=== PATIENT | male | born 1985 | race Two or more races ===

== ENCOUNTER 2021-07-01 09:40 | Emergency (ER) | payer OTHER, SELFPAY ==
--- NOTE | ~2021-07-01 | XR_ITS ---
EXAMINATION: XR chest 1V CLINICAL INFORMATION: Chest pain COMPARISON: None TECHNIQUE: XR chest 1V Tubes and lines: None Lungs and pleura: Both lungs are clear. Heart and mediastinum: The mediastinum is within normal limits.. Bones/soft tissue: ORIF right clavicle XR/XR chest 1V IMPRESSION: No radiographic evidence of acute cardiopulmonary disease.
--- NOTE | 2021-07-01 09:44 | ECG_ITS ---
Test Reason : CHEST PAIN, HEADACHE, BODY ACHE Blood Pressure : / mmHG Vent. Rate : 077 BPM Atrial Rate : 077 BPM P-R Int : 120 ms QRS Dur : 090 ms QT Int : 356 ms P-R-T Axes : 063 -20 044 degrees QTc Int : 402 ms Normal sinus rhythm Normal ECG No previous ECGs available Referred By: Generic ED Physician Electronically Signed By:MOSES JAY MD
[2021-07-01 10:18] VITALS: BP 129/84; PULSE 81; RESP 18; TEMP 36.2; O2SAT 100; BMI 25.8
--- NOTE | 2021-07-01 14:07 | ED_ITS ---
HPI - Chest Pain General Chief Complaint: Upper Respiratory Symptoms Stated Complaint: chest pain, ekg changes, sent from [employer] Time Seen by Provider: 07/01/21 13:40 Source: patient Mode of arrival: ambulatory Limitations: no limitations History of Present Illness HPI narrative: This is a 36 years old patient referred by the Urgent Care with chief complaint of chest pain , chest pain ongoing for about 3 days, denies any shortness of breath he describes the pain as a dull worse with palpation and deep breath. He denies any risk factors for coronary artery disease Onset (ago): day(s) (3) Timing of current episode: daily Onset: during rest Pain location: substernal Pain radiation: none Severity: mild Quality: aching Exacerbating factors: nothing Context: recent illness Risk Factors Coronary artery disease risk factors: none Thoracic aortic dissection risk factors: none Related Data Allergies Allergy/AdvReac Type Severity Reaction Status Date / Time No Known Allergies Allergy Verified 07/01/21 10:17 Review of Systems Review of Systems: Yes all other systems are reviewed and are negative Constitutional: Constitutional: Reports no additional constitutional complaints ENT: Reports system reviewed and no additional complaints, except as documented Cardiovascular: Cardiovascular: Reports no additional cardiovascular complaints Respiratory: Respiratory: Reports no additional respiratory complaints Gastrointestinal: Gastrointestinal: Denies abdominal pain Musculoskeletal: Musculoskeletal: Reports no additional musculoskeletal complaints Neurologic: Reports system reviewed and no additional complaints, except as documented PMFSH Past Medical History PMFSH Narrative: Patient denies any medical problems including diabetes/hypertension hypercholesteremia. He is no smoke Medical History No known health problems Social History Social History Advance Directives: No Advance Directives Information Provided: No Physical Exam Vital Signs: Vital Signs: Last Vital Signs Temp 97.2 F 07/01/21 10:18 Pulse 81 07/01/21 10:18 Resp 18 07/01/21 10:18 BP 129/84 07/01/21 10:18 Pulse Ox 100 07/01/21 10:18 BMI result Body Mass Index 25.8 Const: General: cooperative Nutritional Appearance: well nourished Orientation/consciousness: patient oriented x3 Limitations: no limitations HENMT: Head: Yes normal to inspection General nose exam: Normal external nose present Face and sinus: Yes normal facial exam Mouth: Normal oral and palatal mucosa present Throat: Yes posterior oropharynx normal Neck: Neck: Yes normal visual inspection, Yes full ROM and Yes no lymphadenopathy Chest: Chest palpation & inspection: normal inspection of the chest Resp: Effort & Inspection: normal respiratory effort and able to speak in complete sentences Auscultation: clear to auscultation bilaterally Cardio: Jugular venous distension: no JVD Rate: regular rate GI: Inspection: Yes normal to inspection Palpation (GI): Soft to palpation, not firm, nontender and no guarding Percussion: Yes normal to percussion Skin: General skin exam: no rashes or lesions noted, elasticity normal and turgor normal Lesions: no lesions Rashes: no rashes Wounds: no wounds Hair: normal Neuro: General: patient oriented x3 Course Reevaluation(s) Reevaluation #1: He Is feeling better, D-dimer is negative, high sensitive troponin is normal chest x-ray based within normal limits and overall is low risk patient okay to discharge home Reevaluation #2: chest pain free at this time MDM - Chest Pain MDM Narrative Medical decision making narrative: Overall the patient has no risk factors for early coronary artery disease, no smoker, no hypertension, no hypercholesteremia. EKG shows the no current of injury. I performed a bedside ultrasound he has normal wall motion, no pericardial effusion. We will obtain D-dimer and troponin I sensitive Lab Data Result diagrams: 07/01/21 14:14 07/01/21 14:14 Labs: Lab Results 07/01/21 07/01/21 07/01/21 Range/Units 14:13 14:13 14:14 WBC 9.4 (4.8-10.8) X10*3/uL RBC 5.22 (4.60-5.80) X10*6/uL Hgb 16.6 (14.0-18.0) g/dl Hct 47.5 (42.0-52.0) % MCV 91.0 (80.0-98.0) fL MCH 31.8 (27.0-33.0) pg MCHC 34.9 (31.0-36.0) g/dl RDW 11.4 (11.0-16.0) % Plt Count 278 (160-400) X10*3/uL MPV 9.6 (9.4-12.4) fL Immature Gran % (Auto) 0.2 (0.0-0.4) % Neut % (Auto) 66.8 (45-73) % Lymph % (Auto) 25.2 (20-40) % [place] % (Auto) 6.8 (2-11) % Eos % (Auto) 0.7 (0-4) % Baso % (Auto) 0.3 (0-2) % Lymph # (Auto) 2.4 (1.2-4.9) X10*3/uL [place] # (Auto) 0.6 (0.1-1.2) X10*3/uL Eos # (Auto) 0.1 (0.0-0.4) X10*3/uL Baso # (Auto) 0.0 (0.0-0.2) X10*3/uL Abs Immat Gran (auto) 0.02 (0.00-0.03) X10*3/uL Absolute Neuts (auto) 6.3 (2.0-8.3) x10*3/uL Absolute Nucleated RBC 0.000 (0.0-0.012) X10*3/uL Nucleated RBC % (auto) 0.0 (0.0-0.2) /100WBC D-Dimer High Sensitivty < 150 NG/ML Sodium (135-145) mmol/L Potassium (3.3-5.1) mmol/L Chloride (96-108) mmol/L Carbon Dioxide (22-29) mmol/L Anion Gap (12-20) BUN (9-16) mg/dL Creatinine (0.5-1.4) mg/dL Estim Creat Clear Calc Estimated GFR Random Glucose (60-115) mg/dL Calcium (8.4-10.2) mg/dL Troponin I High Sens < 3.5 (<3.5-35.0) ng/L 07/01/21 Range/Units 14:14 WBC (4.8-10.8) X10*3/uL RBC (4.60-5.80) X10*6/uL Hgb (14.0-18.0) g/dl Hct (42.0-52.0) % MCV (80.0-98.0) fL MCH (27.0-33.0) pg MCHC (31.0-36.0) g/dl RDW (11.0-16.0) % Plt Count (160-400) X10*3/uL MPV (9.4-12.4) fL Immature Gran % (Auto) (0.0-0.4) % Neut % (Auto) (45-73) % Lymph % (Auto) (20-40) % [place] % (Auto) (2-11) % Eos % (Auto) (0-4) % Baso % (Auto) (0-2) % Lymph # (Auto) (1.2-4.9) X10*3/uL [place] # (Auto) (0.1-1.2) X10*3/uL Eos # (Auto) (0.0-0.4) X10*3/uL Baso # (Auto) (0.0-0.2) X10*3/uL Abs Immat Gran (auto) (0.00-0.03) X10*3/uL Absolute Neuts (auto) (2.0-8.3) x10*3/uL Absolute Nucleated RBC (0.0-0.012) X10*3/uL Nucleated RBC % (auto) (0.0-0.2) /100WBC D-Dimer High Sensitivty NG/ML Sodium 139 (135-145) mmol/L Potassium 4.0 (3.3-5.1) mmol/L Chloride 103 (96-108) mmol/L Carbon Dioxide 30 H (22-29) mmol/L Anion Gap 10 L (12-20) BUN 8 L (9-16) mg/dL Creatinine 0.77 (0.5-1.4) mg/dL Estim Creat Clear Calc 123.9 Estimated GFR > 60 Random Glucose 91 (60-115) mg/dL Calcium 9.3 (8.4-10.2) mg/dL Troponin I High Sens (<3.5-35.0) ng/L Imaging Data Chest x-ray: Radiologist's impression: EXAMINATION: XR chest 1V CLINICAL INFORMATION: Chest pain COMPARISON: None? TECHNIQUE: XR chest 1V Tubes and lines: None Lungs and pleura: Both lungs are clear. Heart and mediastinum: The mediastinum is within normal limits.. Bones/soft tissue: ORIF right clavicle XR/XR chest 1V IMPRESSION: No radiographic evidence of acute cardiopulmonary disease. Dictated By: MURPHY LINDER MD Signed By: <Electronically signed by MURPHY LINDER MD in OV> 07/01/21 1027 DD/ 0950 TD/TT:? [place] Counselor: ECG Data ECG #1: ECG interpretation date: 07/01/21 ECG interpretation time: 14:12 Prior ECG tracings: available for review Pacemaker model: Normal sinus rhythm/[address]-T changes Scores Heart Score History: -0- slightly suspicious ECG: -0- normal Age: -0- < or = 45 Risk factory: -0- no risk factors known Troponin: -0- < or = normal limit Score: 0 Risk: 1.7% Discharge Plan Discharge Clinical Impression: Chest pain Patient Disposition: Home, Self-Care Instructions: Chest Pain (ED) Additional Instructions: Follow-up with your primary care physician or if youdo not have one you can call adult primary care or Family medicine return if worse,any concern
[2021-07-01 14:19] LABS: MANUAL DIFF FLAG NO
[2021-07-01 14:20] LABS: Basophils Percent Auto 0.3 % (0-2); Eosinophils Absolute Auto 0.1 X10*3/uL (0.0-0.4); Eosinophils Percent Auto 0.7 % (0-4); Hematocrit 47.5 % (42.0-52.0); Hemoglobin 16.6 g/dl (14.0-18.0); Imm Gran Abs Auto 0.02 X10*3/uL (0.00-0.03); Imm Gran Pct Auto 0.2 % (0.0-0.4); Lymphocytes Absolute Auto 2.4 X10*3/uL (1.2-4.9); Lymphocytes Percent Auto 25.2 % (20-40); Mean Corpuscular HGB Conc 34.9 g/dl (31.0-36.0); Mean Corpuscular Hemoglobin 31.8 pg (27.0-33.0); Mean Platelet Volume 9.6 fL (9.4-12.4); Monocytes Absolute Auto 0.6 X10*3/uL (0.1-1.2); Monocytes Percent Auto 6.8 % (2-11); Neutrophils Absolute Auto 6.3 x10*3/uL (2.0-8.3); Neutrophils Percent Auto 66.8 % (45-73); Platelet Count 278 X10*3/uL (160-400); Red Blood Count 5.22 X10*6/uL (4.60-5.80); Red Cell Distribution Width 11.4 % (11.0-16.0); White Blood Count 9.4 X10*3/uL (4.8-10.8)
--- NOTE | 2021-07-01 14:21 | PC.NURSE ---
Pt received: Pt AOx4 and c/o slight chest discomfort. Heart sounds normal and lungs clear. Pt abd soft and non-tender. Pt ambulatory and independant
[2021-07-01 14:39] LABS: Anion Gap 10 (12-20); Blood Urea Nitrogen 8 mg/dL (9-16); Calcium 9.3 mg/dL (8.4-10.2); Carbon Dioxide 30 mmol/L (22-29); Chloride 103 mmol/L (96-108); Creatinine Clr Calc Pharmacy 123.9; Estimated Glomerular Filt Rate > 60; Glucose Random 91 mg/dL (60-115); Sodium 139 mmol/L (135-145)
[2021-07-01 14:41] LABS: D Dimer High Sensitivity < 150 NG/ML
[2021-07-01 14:46] LABS: Troponin-I High Sensitivity < 3.5 ng/L (<3.5-35.0)
== END 2021-07-01 16:30 | disposition home or self-care (01) ==
PROVIDERS: Emergency Provider Emergency Medicine
DX: R07.9 Chest pain, unspecified (principal)
CPT/HCPCS: 36415; 71045; 80048; 84484; 85025; 85379; 93005; 99283

== ENCOUNTER 2021-09-03 07:19 | Emergency (ER) | payer OTHER, SELFPAY ==
--- NOTE | ~2021-09-03 | XR_ITS ---
EXAMINATION: XR CHEST CLINICAL INFORMATION: Chest pain, cough. COMPARISON: 07/01/2021 TECHNIQUE: Frontal view of the chest was obtained. FINDINGS: ORIF right clavicular fracture. The cardiomediastinal silhouette is within normal limits and stable. The lungs are minimally hypoexpanded but clear. No consolidation, effusion, or pneumothorax. No vascular congestion or pulmonary edema. XR/XR chest 1V IMPRESSION: No acute cardiopulmonary findings. Stable chest x-ray compared 07/01/2021.
[2021-09-03 07:31] VITALS: BP 127/83; PULSE 80; RESP 16; TEMP 36.4; O2SAT 98; BMI 26.2
--- NOTE | 2021-09-03 08:48 | ECG_ITS ---
Test Reason : CHEST PAIN Blood Pressure : / mmHG Vent. Rate : 069 BPM Atrial Rate : 069 BPM P-R Int : 112 ms QRS Dur : 090 ms QT Int : 372 ms P-R-T Axes : 036 -15 033 degrees QTc Int : 398 ms Normal sinus rhythm Normal ECG When compared with ECG of 01-JUL-2021 11:18, No significant change was found Referred By: Aris Montelongo Electronically Signed By:MOSES JAY MD
--- NOTE | 2021-09-03 08:50 | ED_ITS ---
HPI - General Adult General Chief complaint: Headache Stated complaint: dizziness/body aches Time Seen by Provider: 09/03/21 08:24 Source: patient Mode of arrival: ambulatory Limitations: no limitations History of Present Illness HPI narrative: 36-year-old male presents to ED for multiple complaints for the past 2 weeks. Patient states having body aches, headache, coughing, fatigue, chest pain on inspiration, chills, diarrhea, abdominal pain, and dizziness described as fatigue. Patient denies any slurred speech, facial droop, paralysis of extremity, loss of vision, or passing out. Patient denies any dysuria, hematuria, flank pain, or any genital urinary symptoms. Patient not vaccinated against COVID. Related Data Allergies Allergy/AdvReac Type Severity Reaction Status Date / Time No Known Allergies Allergy Verified 07/01/21 10:17 Review of Systems Review of Systems: Headache, body aches, coughing, abdominal pain, diarrhea, dizziness. Yes all other systems are reviewed and are negative PMFSH Past Medical History Medical History No known health problems Social History Social History Patient Tobacco Use Status: Never used Tobacco Use of substances other than those prescribed or required for medical reasons: No Advance Directives: No Advance Directives Information Provided: No Physical Exam ED Vital Signs: Vital Signs - 24 hr 09/03/21 07:31 09/03/21 09:34 09/03/21 10:48 Temperature 97.6 F Pulse Rate 80 70 Respiratory Rate 16 18 18 Blood Pressure 127/83 122/84 126/86 Pulse Oximetry 98 99 BMI result Body Mass Index 26.2 Const General: cooperative, healthy appearing, comfortable, no acute distress, well developed, alert, awake and Physically active Orientation/consciousness: patient oriented x3 HENMT Head: Yes normal to inspection, Yes No palpable skull fracture present, Yes normocephalic, Yes atraumatic and No abrasion Ears: hearing grossly normal bilaterally, external ears normal, TM's normal bilaterally, EAC's normal, mastoids normal and no periauricular adenopathy General nose exam: Normal external nose present and Normal nares present Face and sinus: Yes normal facial exam, Yes sinuses nontender and Yes face symmetric Throat: Yes posterior oropharynx normal, Yes tonsils normal and Yes uvula midl ine Eyes Other: Negative nystagmus General: appearance normal, both eyes and all related structures Neck Neck: Yes normal visual inspection, Yes full ROM, Yes no lymphadenopathy, Yes no meningeal signs, Yes trachea midline, Yes supple, No anterior neck swelling and No tender Chest Chest palpation & inspection: normal inspection of the chest and normal palpation of entire chest wall Resp Effort & Inspection: normal respiratory effort and able to speak in complete sentences Auscultation: clear to auscultation bilaterally Cardio Jugular venous distension: no JVD Heart sounds: S1 normal heart sound present and S2 normal heart sound present GI Inspection: Yes normal to inspection and No abdominal wall ecchymosis Palpation (GI): Soft to palpation, not firm, nontender, no guarding and not rigid General: No CVA tenderness and Yes no CVA tenderness Back/Spine/Pelvis Back: no CVA tenderness, No CVA tenderness and No back tenderness Skin General skin exam: no rashes or lesions noted and elasticity normal Neuro Other: Negative facial droop. [id number] and rapid hand movement intact. Negative Romberg. Negative pronator drift. Negative slurred speech. All extremities equal strength 5+. [id number] rapid head movement intact. NIH score 0 General: patient oriented x3, gait normal, no meningeal signs and CN's II-XI int act bilaterally Cranial nerves: Yes CN's II-XII intact bilaterally Cognition (Neuro): normal cognition Gait exam (Neuro): Normal gait present Motor exam (neuro): 5/5 motor strength present throughout Extrem General: Yes normal to inspection and Yes full ROM Psych Appearance: grossly normal, well kempt and not disheveled Course Course Course Narrative: Patient will have medical evaluation probably viral-like syndrome will test for COVID due to chest pain inspiration will do troponin EKG and dimer. Chest x-ray ordered to check for pneumonia Reevaluation(s) Reevaluation #1: Negative for any neuro deficits. Not suspecting stroke, brain bleed, or mass. No Head CT scan indicated. Patient complaining of chest pain and on inspiration for 2 weeks has a negative D-dimer. COVID test came back negative. Chest chest x-ray normal. EKG negative STEMI. Labs are normal. Symptoms due to viral syndrome patient will be discharged. No need for any abdominal imaging. Patient does not have any abdominal tenderness on palpation. Patient did not have any urinary symptoms. No need for UA. Time: 10:36 Medical Decision Making MDM Narrative Medical decision making narrative: Viral syndrome Lab Data Result diagrams: 09/03/21 09:22 09/03/21 09:22 Labs: Lab Results 09/03/21 09/03/21 09/03/21 Range/Units 09:22 09:22 09:22 WBC 7.9 (4.8-10.8) X10*3/uL RBC 4.91 (4.60-5.80) X10*6/uL Hgb 15.5 (14.0-18.0) g/dl Hct 45.0 (42.0-52.0) % MCV 91.6 (80.0-98.0) fL MCH 31.6 (27.0-33.0) pg MCHC 34.4 (31.0-36.0) g/dl RDW 11.5 (11.0-16.0) % Plt Count 246 (160-400) X10*3/uL MPV 9.7 (9.4-12.4) fL Immature Gran % (Auto) 0.3 (0.0-0.4) % Neut % (Auto) 68.9 (45-73) % Lymph % (Auto) 23.4 (20-40) % [place] % (Auto) 6.6 (2-11) % Eos % (Auto) 0.4 (0-4) % Baso % (Auto) 0.4 (0-2) % Lymph # (Auto) 1.9 (1.2-4.9) X10*3/uL [place] # (Auto) 0.5 (0.1-1.2) X10*3/uL Eos # (Auto) 0.0 (0.0-0.4) X10*3/uL Baso # (Auto) 0.0 (0.0-0.2) X10*3/uL Abs Immat Gran (auto) 0.02 (0.00-0.03) X10*3/uL Absolute Neuts (auto) 5.4 (2.0-8.3) x10*3/uL Absolute Nucleated RBC 0.000 (0.0-0.012) X10*3/uL Nucleated RBC % (auto) 0.0 (0.0-0.2) /100WBC PT 12.1 (9.9-13.0) SEC INR 1.1 (0.9-1.1) APTT 30.5 (24.1-38.0) SEC D-Dimer High Sensitivty < 150 NG/ML Sodium 139 (135-145) mmol/L Potassium 4.4 (3.3-5.1) mmol/L Chloride 105 (96-108) mmol/L Carbon Dioxide 30 H (22-29) mmol/L Anion Gap 8 L (12-20) BUN 9 (9-16) mg/dL Creatinine 0.76 (0.5-1.4) mg/dL Estim Creat Clear Calc 125.6 Estimated GFR > 60 Random Glucose 86 (60-115) mg/dL Calcium 9.0 (8.4-10.2) mg/dL Total Bilirubin 0.5 (0.0-1.0) mg/dL AST 13 (5-37) U/L ALT 12 (0-40) U/L Alkaline Phosphatase 63 (39-117) U/L Troponin I High Sens (<3.5-35.0) ng/L Total Protein 6.6 (6.5-8.0) g/dL Albumin 4.0 (3.5-5.0) g/dL Lipase (8-78) U/L COVID-19 ([facility]) (Negative) COVID-19 Clin Com 09/03/21 09/03/21 09/03/21 Range/Units 09:22 09:22 09:23 WBC (4.8-10.8) X10*3/uL RBC (4.60-5.80) X10*6/uL Hgb (14.0-18.0) g/dl Hct (42.0-52.0) % MCV (80.0-98.0) fL MCH (27.0-33.0) pg MCHC (31.0-36.0) g/dl RDW (11.0-16.0) % Plt Count (160-400) X10*3/uL MPV (9.4-12.4) fL Immature Gran % (Auto) (0.0-0.4) % Neut % (Auto) (45-73) % Lymph % (Auto) (20-40) % [place] % (Auto) (2-11) % Eos % (Auto) (0-4) % Baso % (Auto) (0-2) % Lymph # (Auto) (1.2-4.9) X10*3/uL [place] # (Auto) (0.1-1.2) X10*3/uL Eos # (Auto) (0.0-0.4) X10*3/uL Baso # (Auto) (0.0-0.2) X10*3/uL Abs Immat Gran (auto) (0.00-0.03) X10*3/uL Absolute Neuts (auto) (2.0-8.3) x10*3/uL Absolute Nucleated RBC (0.0-0.012) X10*3/uL Nucleated RBC % (auto) (0.0-0.2) /100WBC PT (9.9-13.0) SEC INR (0.9-1.1) APTT (24.1-38.0) SEC D-Dimer High Sensitivty NG/ML Sodium (135-145) mmol/L Potassium (3.3-5.1) mmol/L Chloride (96-108) mmol/L Carbon Dioxide (22-29) mmol/L Anion Gap (12-20) BUN (9-16) mg/dL Creatinine (0.5-1.4) mg/dL Estim Creat Clear Calc Estimated GFR Random Glucose (60-115) mg/dL Calcium (8.4-10.2) mg/dL Total Bilirubin (0.0-1.0) mg/dL AST (5-37) U/L ALT (0-40) U/L Alkaline Phosphatase (39-117) U/L Troponin I High Sens < 3.5 (<3.5-35.0) ng/L Total Protein (6.5-8.0) g/dL Albumin (3.5-5.0) g/dL Lipase 15 (8-78) U/L COVID-19 ([facility]) Negative (Negative) COVID-19 Clin Com See Note ECG Data Interpretation: Normal sinus rhythm. Ventricular rate 69. Pr interval 112. QRS 90. QTC 398. Negative STEMI Discharge Plan Discharge Clinical Impression: Acute viral syndrome Patient Disposition: Home, Self-Care Instructions: Viral Syndrome (ED) Additional Instructions: Your EKG and blood work came back normal and negative for signs of heart attack or risk of pulmonary embolus. Chest x-ray came back negative for pneumonia. Electrolytes are normal. Symptoms most likely due to viral syndrome. Please follow-up with your primary care provider. Return to the ED immediately for any worsening symptoms. Return to the ED for any slurred speech, facial droop, paralysis of extremities, shortness of breath, coughing up blood, calf pain, leg swelling, intractable fever, chills, severe abdominal pain hematuria, dysuria, intractable headache, blood in stool or any other concerning symptoms. Stand Alone Forms: Work/School Release Interventions: ED Discharge Assessment Last Done: 09/03/21 10:49 Discharge Date/Time: 09/03/21 10:51 Print Language: Palestinian
[2021-09-03 09:29] LABS: MANUAL DIFF FLAG NO
[2021-09-03 09:34] VITALS: BP 122/84; PULSE 70; RESP 18; O2SAT 99
[2021-09-03 09:35] LABS: Basophils Percent Auto 0.4 % (0-2); Eosinophils Percent Auto 0.4 % (0-4); Hemoglobin 15.5 g/dl (14.0-18.0); Imm Gran Abs Auto 0.02 X10*3/uL (0.00-0.03); Imm Gran Pct Auto 0.3 % (0.0-0.4); Lymphocytes Absolute Auto 1.9 X10*3/uL (1.2-4.9); Lymphocytes Percent Auto 23.4 % (20-40); Mean Corpuscular HGB Conc 34.4 g/dl (31.0-36.0); Mean Corpuscular Hemoglobin 31.6 pg (27.0-33.0); Mean Corpuscular Volume 91.6 fL (80.0-98.0); Mean Platelet Volume 9.7 fL (9.4-12.4); Monocytes Absolute Auto 0.5 X10*3/uL (0.1-1.2); Monocytes Percent Auto 6.6 % (2-11); Neutrophils Absolute Auto 5.4 x10*3/uL (2.0-8.3); Neutrophils Percent Auto 68.9 % (45-73); Platelet Count 246 X10*3/uL (160-400); Red Blood Count 4.91 X10*6/uL (4.60-5.80); Red Cell Distribution Width 11.5 % (11.0-16.0); White Blood Count 7.9 X10*3/uL (4.8-10.8)
--- NOTE | 2021-09-03 09:40 | PC.NURSE ---
pt alert and oriented, skin pwd, respirations even and unlabored, pt reports for a about two weeks having a headache/dizziness/body aches/chest pain, states things are spinning in circles, vs stable
[2021-09-03 09:44] LABS: INTERNATIONAL NORM RATIO 1.1 (0.9-1.1); Prothrombin Time 12.1 SEC (9.9-13.0)
[2021-09-03 09:46] LABS: Partial Thromboplastin Time 30.5 SEC (24.1-38.0)
[2021-09-03 09:47] LABS: Lipase 15 U/L (8-78)
[2021-09-03 09:49] LABS: Alanine Aminotransferase 12 U/L (0-40); Alkaline Phosphatase 63 U/L (39-117); Anion Gap 8 (12-20); Aspartate Amino Transferase 13 U/L (5-37); Bilirubin Total 0.5 mg/dL (0.0-1.0); Blood Urea Nitrogen 9 mg/dL (9-16); Carbon Dioxide 30 mmol/L (22-29); Chloride 105 mmol/L (96-108); Creatinine Clr Calc Pharmacy 125.6; Estimated Glomerular Filt Rate > 60; Glucose Random 86 mg/dL (60-115); Potassium 4.4 mmol/L (3.3-5.1); Sodium 139 mmol/L (135-145); Total Protein 6.6 g/dL (6.5-8.0)
[2021-09-03 09:50] LABS: COVID-19 Test Negative (Negative)
[2021-09-03 09:51] LABS: Troponin-I High Sensitivity < 3.5 ng/L (<3.5-35.0)
[2021-09-03 10:23] LABS: D Dimer High Sensitivity < 150 NG/ML
[2021-09-03 10:48] VITALS: BP 126/86; RESP 18
== END 2021-09-03 10:51 | disposition home or self-care (01) ==
PROVIDERS: Physician Assistant; Emergency Provider Emergency Medicine
DX: B34.9 Viral infection, unspecified (principal); Z20.822 Contact with and (suspected) exposure to COVID-19; R51.9 Headache, unspecified
CPT/HCPCS: 36415; 71045; 80053; 83690; 84484; 85025; 85379; 85610; 85730; 87635; 93005; 99283; 99284

== ENCOUNTER 2022-08-23 18:42 | Emergency (ER) | payer OTHER, SELFPAY ==
[2022-08-23 18:55] VITALS: BP 134/87; PULSE 91; RESP 16; TEMP 36.4; O2SAT 96; BMI 29.0
--- NOTE | 2022-08-23 18:59 | ED_ITS ---
HPI - General Adult General Chief complaint: Ear Problems Stated complaint: ear infection? Time Seen by Provider: 08/23/22 19:02 Source: patient Mode of arrival: ambulatory Limitations: no limitations History of Present Illness HPI narrative: Patient is a 37 year old assigned male at with no reported medical history presenting to the emergency department today with right sided ear pain. Patient states that he has been having right sided ear pain and dizziness for 4 weeks. Patient states he was treated by [facility] with augmentin and it got better for a little bit but now it is back. Patient states that he has an appointment with ENT at the end of September. Patient denies any dizziness, lightheadedness, abdominal pain, nausea, vomiting, fever, chills, blurry vision, double vision, loss of vision, chest pain, difficulty breathing, shortness of breath, back pain, night sweats, pain with urination, increased urinary frequency, increased urinary urgency, blood in his urine or stool, syncope or a near syncopal episode, recent trauma or falls, bowel incontinence, bladder incontinence, bowel retention, bladder retention, or any other complaints at this time. Onset (ago): week(s) (4) Location: right (ear) Severity: mild Severity scale (1-10): 3 Relieving factors: none Exacerbating factors: none Associated symptoms: denies other symptoms Treatments prior to arrival: none Related Data Previous Rx's Medication Instructions Recorded doxycycline hyclate 100 mg tablet 100 mg PO BID 7 days #14 tabs 08/23/22 Allergies Allergy/AdvReac Type Severity Reaction Status Date / Time No Known Allergies Allergy Verified 07/01/21 10:17 Review of Systems Constitutional: Constitutional: Reports no additional constitutional complaints, Denies chills, Denies fever(s) and Denies night sweats Eyes: Eyes: Reports no additional eye complaints, Denies blurry vision, Denies change in vision, Denies diplopia, Denies eye discharge, Denies loss of vision and Denies eye pain ENT: Reports dizziness Comments: right ear pain Cardiovascular: Cardiovascular: Reports no additional cardiovascular complaints, Denies chest pain, Denies lightheadedness, Denies Loss of Consciousness and Denies dyspnea Respiratory: Respiratory: Reports no additional respiratory complaints and Denies dyspnea Gastrointestinal: Gastrointestinal: Reports no additional gastrointestinal complaints, Denies abdominal pain, Denies melena, Denies hematochezia, Denies change in bowel habits and Denies change in stool character Genitourinary: Genitourinary: Reports no additional male genitourinary complaints, Denies hematuria, Denies oliguria, Denies difficulty urinating, Denies dysuria, Denies urinary frequency, Denies urinary hesitancy, Denies urinary incontinence and Denies urinary urgency Musculoskeletal: Musculoskeletal: Reports no additional musculoskeletal complaints, Denies numbness and Denies tingling Neurologic: Reports dizziness, Denies loss of vision, Denies numbness and Denies tingling Psychiatric: Psychiatric: Reports no additional psychiatric complaints Endocrine: Endocrine: Reports no additional endocrine complaints Hematologic/Lymphatic: Hematologic/Lymphatic: Reports no additional hematologic/lymphatic complaints Allergic/Immunologic: Allergic/Immunologic: Reports no additional allergic/immunologic complaints PMFSH Past Medical History Attestation statement: The following information was validated with the patient. Source: old records reviewed and nursing notes reviewed Medical History No known health problems Social History Social History Patient Tobacco Use Status: Never used Tobacco Advance Directives: No Advance Directives Information Provided: No Physical Exam ED Vital Signs: Vital Signs - 24 hr 08/23/22 18:55 Temperature 97.5 F Pulse Rate 91 Respiratory Rate 16 Blood Pressure 134/87 Pulse Oximetry 96 Oxygen Delivery Method Room Air BMI result Body Mass Index 29.0 Const General: cooperative, no acute distress, alert and awake Nutritional Appearance: well nourished Orientation/consciousness: patient oriented x3 Limitations: no limitations [facility] Head: Yes normal to inspection and Yes atraumatic Ears: hearing grossly normal bilaterally, external ears normal and TM abnormal erythematous on the right General nose exam: Normal external nose present, no nasal discharge noted and no epistaxis Face and sinus: Yes normal facial exam, No abrasion, No laceration and Yes sinus tenderness Mouth: Normal oral and palatal mucosa present, no drooling and no muffled voice Eyes General: appearance normal, both eyes and all related structures Periorbital: periorbital findings normal Eyelids: Yes eyelids normal Conjunctivae: conjunctivae normal Pupils: Equal, round and reactive pupils present EOM: EOMs intact bilaterally Neck Neck: Yes normal visual inspection, Yes full ROM and Yes no lymphadenopathy Chest Chest palpation & inspection: normal inspection of the chest Resp Effort & Inspection: normal respiratory effort and able to speak in complete sentences Auscultation: clear to auscultation bilaterally Cardio Rate: regular rate Rhythm: regular rhythm GI Inspection: Yes normal to inspection Palpation (GI): Soft to palpation, not firm, nontender, no guarding and not rigid Neuro General: patient oriented x3 and moves all extremities Cranial nerves: Yes Equal, round and reactive pupils present Cognition (Neuro): normal cognition Motor exam (neuro): 5/5 motor strength present throughout Sensory Exam: Normal double simultaneous stimulation for sensation Coordination: [id number] test normal Extrem General: Yes normal to inspection, Yes full ROM and Yes capillary refill normal Psych Appearance: grossly normal Mental Status: mental status grossly normal Affect: normal affect Attitude: cooperative Thought process: Normal thought process present Thought content: Normal thought content present Insight: Good insight present (Psych) Medical Decision Making Medical Decision Making MDM Narrative: Patient is a 37 year old assigned male at with no reported medical history presenting to the emergency department today with right ear pain and dizziness. Patient's physical exam showed sinus tenderness and right TM erythema. I explained my physical exam findings to the patient. I answered all questions asked by the patient. I stressed the importance of the patient taking his medication as prescribed. I stressed the importance of the patient following up with his primary care provider and his ENT. I stressed the importance of the patient returning to the emergency department immediately if his symptoms were to worsen or if he were to develop any dizziness, shortness of breath, difficulty breathing, chest pain, blurry vision, loss of vision, nausea, vomiting, abdominal pain, fever, chills, back pain, or any other complaints. Patient verbalized agreement and understanding with this treatment plan and discharge. Differential Diagnosis Differential Diagnoses: The differential diagnosis associated with the presentation includes otitis media, sinusitis Discharge Plan Discharge Clinical Impression: Sinusitis, Otitis media Patient Disposition: Home, Self-Care Instructions: Sinusitis (ED), Ear Infection (ED) Additional Instructions: Follow up with your primary care provider and the ENT. Return to the emergency department immediately if your symptoms worsen or if you develop any dizziness, shortness of breath, difficulty breathing, chest pain, blurry vision, loss of vision, nausea, vomiting, abdominal pain, fever, chills, back pain, or any other complaints. Prescriptions: New doxycycline hyclate 100 mg tablet 100 mg PO BID 7 Days Qty: 14 0RF Referrals: [facility] [place] Family Medicine [Provider Group] (Call to establish and follow up with a primary care provider. If you already have a primary care provider, please follow up with them.) [facility] [place] Primary Care, Angel [Provider Group] (Call to establish and follow up with a primary care provider. If you already have a primary care provider, please follow up with them.) [facility] [place] Primary Care,Sae [Provider Group] (Call to establish and follow up with a primary care provider. If you already have a primary care provider, please follow up with them.) Interventions: ED Discharge Assessment Last Done: 08/23/22 19:05 Discharge Date/Time: 08/23/22 19:06 Print Language: Finnish
--- NOTE | 2022-08-23 19:05 | PC.NURSE ---
Pt was seen by PA in triage office and D/C'd immediately following the triage process.
== END 2022-08-23 19:06 | disposition home or self-care (01) ==
PROVIDERS: Emergency Provider Emergency Medicine Emergency Medical Services
DX: J32.9 Chronic sinusitis, unspecified (principal); H66.93 Otitis media, unspecified, bilateral
CPT/HCPCS: 99282; 99283

== ENCOUNTER → 2022-11-11 08:00 | Outpatient (BNVA) | payer SELFPAY | PROVIDERS: Visit Provider Physician Assistant Medical | DX: Z02.79 Encounter for issue of other medical certificate (principal) ==

== ENCOUNTER 2023-10-23 09:34 | Outpatient (REF) | payer SELFPAY ==
[2023-10-23 11:33] LABS: MANUAL DIFF FLAG NO
[2023-10-23 11:40] LABS: Basophils Percent Auto 0.3 % (0-2); Eosinophils Percent Auto 0.5 % (0-4); Hematocrit 47.3 % (42.0-52.0); Hemoglobin 16.5 g/dl (14.0-18.0); Imm Gran Abs Auto 0.02 X10*3/uL (0.00-0.03); Imm Gran Pct Auto 0.3 % (0.0-0.4); Lymphocytes Absolute Auto 2.1 X10*3/uL (1.2-4.9); Lymphocytes Percent Auto 26.6 % (20-40); Mean Corpuscular HGB Conc 34.9 g/dl (31.0-36.0); Mean Corpuscular Hemoglobin 31.5 pg (27.0-33.0); Mean Corpuscular Volume 90.3 fL (80.0-98.0); Monocytes Absolute Auto 0.8 X10*3/uL (0.1-1.2); Monocytes Percent Auto 10.5 % (2-11); Neutrophils Absolute Auto 4.8 x10*3/uL (2.0-8.3); Neutrophils Percent Auto 61.8 % (45-73); Platelet Count 271 X10*3/uL (160-400); Red Blood Count 5.24 X10*6/uL (4.60-5.80); Red Cell Distribution Width 11.6 % (11.0-16.0); White Blood Count 7.8 X10*3/uL (4.8-10.8)
[2023-10-23 12:06] LABS: Anion Gap 10 (12-20); Blood Urea Nitrogen 11 mg/dL (9-16); Calcium 9.2 mg/dL (8.4-10.2); Carbon Dioxide 29 mmol/L (22-29); Chloride 105 mmol/L (96-108); Estimated Glomerular Filt Rate > 60; Glucose Random 85 mg/dL (60-115); Potassium 4.1 mmol/L (3.3-5.1); Sodium 140 mmol/L (135-145)
== END 2023-10-23 09:35 | disposition home or self-care (01) ==
LOC: HO.HHCL 09:34
PROVIDERS: Visit Provider Family Medicine
DX: R10.13 Epigastric pain (principal)
CPT/HCPCS: 36415; 80048; 85025

== ENCOUNTER 2024-10-21 13:24 | Outpatient (AMB) | payer OTHER, SELFPAY ==
[2024-10-21 13:28] VITALS: BP 118/84; PULSE 88; RESP 18; TEMP 37.6; O2SAT 97; BMI 28.3
--- NOTE | 2024-10-21 13:28 | A.OFFPC_ITS ---
Vital Signs 10/21/24 13:28 Height 5 ft 7.5 in Weight 183 lb 6.4 oz BMI 28.3 BP 118/84 Blood Pressure Location Lt brachial Position Sitting Respiration 18 Pulse 88 Pulse Source Pulse Oximeter Temp 99.6 F Temp Source Oral Pulse Oximetry (%) 97 Oxygen Delivery Method Room Air Intake Visit Reasons: establish care/ requesting pe Intake Note: Patient is a new patient here to [facility]. Patient reports that he does not recall previous primary care physician's name but they were located at [facility] in [place], [place], now known as [facility] in [place], [place]; last seen ~7 years ago. Medical records have not been requested and have not been received. 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: No Accompanied by: Self / Same As Patient Allergies No Known Allergies Allergy (Verified 10/21/24 13:59) Medication List - Last Reconciled 10/21/24 by JOI Delarosa No Known Home Meds Tobacco use date assessed: 10/21/24 Dental Screening Dental Screen Date: 10/21/24 Did you have a dental visit in the last 12 months?: Yes Did you have a dental problem in the last 6 months where you did not have access to dental care?: No Was dental information given to patient?: Patient has dentist HPI establish care/ requesting pe HPI Details The patient is a 39-year-old male presenting to [facility]. Reports that he has not been to the doctors in a while He reports issues related to abdominal discomfort and headaches. His headaches are infrequent, occurring about once a week, and are considered mild. He believes his low water intake could be a contributor. Regarding his abdominal issues, he reports irregular bowel patterns and the occurrence of fecal inconti nence coinciding with flatulence occasionally over several months. His family history includes non-cancerous colon polyps. Prior medical history notes a shoulder injury from an accident requiring monse gical insertion of metal, yet no current pain exists. The patient is not on any special diet, denies blood in stool, denies any anal trauma or hx of hemorrhoids. He reports that for the last two days his stools have been greenish in color. The focus today remains on addressing these recurring health concerns, primarily at his mother?s request for preventive care. [facility] Medical History (Updated 10/24/24 @ 17:53 by JOI Delarosa) History of fracture of clavicle No known health problems Surgical History Hx of appendectomy Family History Mother Diabetes Thyroid disease Father Colon polyps Son No problems noted. 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 1. Little interest or pleasure in doing things: not at all 2. Feeling down, depressed, or hopeless: not at all 3. Trouble falling or staying asleep, or sleeping too much: not at all 4. Feeling tired or having little energy: several days 5. Poor appetite or overeating: not at all 6. Feeling bad about yourself - or that you are a failure or have let yourself or your family down: not at all 7. Trouble concentrating on things, such as reading the newspaper or watching television: not at all 8. Moving or speaking so slowly that other people could have noticed. Or the opposite - being so fidgety or restless that you have been moving around a lot more than usual: not at all 9. Thoughts that you would be better off or of hurting yourself in some way: not at all Total score: 1 Depression Screening Interpretation: Negative Depression Screening Done: Yes 90351 - PHQ-9 Billing: Yes Source: Developed by Drs. Simone Leyva, Marianna Rodríguez, Matteo Arredondo and colleagues, with an educational jac from [employer]. Thrive Questionnaire Date Thrive assessed: 10/19/24 I am a: Patient What is your living situation today?: I have a steady place to live Within the past 12 months, did the food you bought not last and you didn't have the money to get more?: Never true Within the past 12 months, did you worry whether your food would run out before you got money to buy more?: Never true Do you have trouble paying for medicines?: No Do you have trouble getting transportation to medical appointments?: No Do you have trouble paying your heating and electricity bill?: No Do you have trouble taking care of your child, family member or friend?: No Do you have trouble with day-to-day activities such as bathing, preparing meals, shopping, managing finances, etc.?: No Are you currently unemployed and looking for a job?: No Are you interested in more education?: No Please select the resources that you would like help with: None Currently or been in a relationship where the following occur: I choose not to answer THRIVE Score: 0 AUDIT C Alcohol Use Questionnaire (AUDIT-C) 1. How often do you have a drink containing alcohol?: Monthly or less (Rarely) 2. How many drinks containing alcohol do you have on a typical day when you are drinking?: 1 or 2 3. How often do you have six or more drinks on one occasion?: Never Total Score: 1 Score Reviewed/Action Taken: No MANJIT-7 AMB Questionnaire MANJIT-7 Date MANJIT - 7 assessed: 10/21/24 Feeling nervous, anxious, or on edge: 0 = Not at all Not being able to stop or control worryin = Not at all Worrying too much about different things: 0 = Not at all Trouble relaxin = Not at all Being so restless that it is hard to sit still: 0 = Not at all Becoming easily annoyed or irritable: 0 = Not at all Feeling afraid as if something awful might happen: 0 = Not at all Total MANJIT-7 score (0-4 normal; 5-9 mild; 10-14 moderate; 15-21 severe): 0 Source: Developed by Drs. Simone Leyva, Marianna Rodríguez, Matteo Arredondo and colleagues, with an educational jac from [employer]. MANJIT-7 Assessment Billing MANJIT-7 Assessment Tool: MANJIT-7 Assessment 88820 Review of Systems Const Reports headache(s) Eyes Denies loss of vision ENT Denies vertigo, Denies dizziness, Reports headache(s) and Denies sore throat Card Denies chest pain, Denies leg edema and Denies lightheadedness Resp Denies cough, Denies hemoptysis and Denies wheezing GI Reports abdominal pain (diffuse), Denies melena, Reports change in stool character, Denies constipation, Reports excessive flatus, Reports fecal inc ontinence (with passing gas), Denies diarrhea, Reports loose stools and Denies vomiting Denies dysuria, Denies urinary frequency and Denies urinary urgency Musc Denies arthralgias, Denies joint swelling, Denies numbness, Denies tingling and Reports other (hx of shoulder surgery) Neuro Denies Abnormal speech present, Denies behavioral changes, Denies vertigo, Denies dizziness, Reports headache(s), Denies loss of vision, Denies memory loss, Denies numbness and Denies tingling Psych Denies anxiety, Denies behavioral changes, Denies depression, Denies memory loss and Denies panic attacks Favio/Lymph Denies easy bleeding and Denies easy bruising Aller/Immun Denies wheezing Physical exam (Primary Care) Vital Signs: Last Vital Signs Temp 99.6 F 10/21/24 13:28 Pulse 88 10/21/24 13:28 Resp 18 10/21/24 13:28 BP 118/84 10/21/24 13:28 Pulse Ox 97 10/21/24 13:28 Oxygen Delivery Method Room Air 10/21/24 13:28 BMI result Body Mass Index 28.3 Tobacco/Smoking Status: Tobacco use Status Tobacco use date assessed 10/21/24 10/21/24 13:53 Patient Tobacco Use Status Never used Tobacco 10/21/24 13:53 e-Cigarette/Vaping Use Never Used 10/21/24 13:53 PHQ-9: PHQ-9 Score PHQ-9: Total score 1 10/21/24 14:04 Depression Screening Interpretation: Negative Thrive Assessment: Date of Thrive Assessment Date Thrive assessed 10/19/24 10/21/24 13:53 Currently or been in a relationship where the following occur: I choose not to answer Const General: healthy appearing, no acute distress, alert and awake Nutritional Appearance: well nourished Orientation/consciousness: oriented to person, oriented to place and oriented to time HENMT Ears: TM's normal bilaterally General nose exam: Normal nasal mucous membranes and turbinates present Eyes Conjunctivae: conjunctivae normal Sclerae: sclerae normal Pupils: Equal, round and reactive pupils present Neck Neck: Yes no lymphadenopathy and Yes no JVD Thyroid: Thyroid normal Carotids: no bruits Resp Effort & Inspection: normal respiratory effort and not tachypneic Auscultation: no crackles, no rales, no rhonchi and no wheezes Cardio Rate: regular rate Rhythm: regular rhythm Heart sounds: no murmurs and normal S1 and S2 GI Palpation (GI): Soft to palpation, Tenderness to palpation present (GI) (diffuse), no hepatomegaly and no splenomegaly Auscultation: normal bowel sounds Rectal Exam - Male: Yes deferred Skin General skin exam: no rashes or lesions noted and dry skin Neuro General: oriented to person, oriented to place and oriented to time Cranial nerves: Yes Equal, round and reactive pupils present Speech: No Abnormal speech present Gait exam (Neuro): Normal gait present Motor exam (neuro): no tremor noted Extrem Right upper extremity: full ROM Left upper extremity: full ROM Right lower extremity: full ROM; no edema Left lower extremity: full ROM; no edema Psych Mental Status: mental status grossly normal Speech and movement: Normal speech and movement present Affect: normal affect Attitude: cooperative Thought process: Normal thought process present Coding Level of Care Code New Pt Level 3 (66560) Diagnoses Generalized abdominal pain R10.84 Abdominal location: generalized Nonintractable headache, unspecified chronicity pattern, unspecified headache type R51.9 Headache type: unspecified Headache chronicity pattern: unspecified pattern Intractability: not intractable Fecal smearing R15.1 Fecal incontinence type: fecal smearing Loose stools R19.5 Additional Codes MANJIT-7 Assessment Billing - MANJIT-7 Assessment Tool: MANJIT-7 Assessment 74459 ([id number]) PHQ-9 - 39905 - PHQ-9 Billing: Yes ([id number]) Time Spent (min) 31 Assessment & Plan Assessment & Plan (1) Abdominal pain: Code(s): R10.9 - Unspecified abdominal pain Category: Medical Qualifiers: Abdominal location: generalized Qualified Code(s): R10.84 - Generalized abdominal pain (2) Headache: Code(s): R51.9 - Headache, unspecified Category: Medical Qualifiers: Headache type: unspecified Headache chronicity pattern: unspecified pattern Intractability: not intractable Qualified Code(s): R51.9 - Headache, unspecified (3) Stool incontinence: Code(s): R15.9 - Full incontinence of feces Category: Medical Qualifiers: Fecal incontinence type: fecal smearing Qualified Code(s): R15.1 - Fecal smearing (4) Loose stools: Code(s): R19.5 - Other fecal abnormalities Category: Medical Plan Upon review, the patient will be increasing his fluid intake to address dehydration headaches. He will undergo an abdominal ultrasound and comprehensive laboratory testing to evaluate the etiology of his abdominal discomfort and bowel changes. As part of preventive care, a complete physical examination will be scheduled in 6 to 7 weeks, alongside a review of the current diagnostic results. Consider GI referral and stool sample if symptoms continues. Initial labs require fasting, so the patient will need to schedule at an appropriate time. Patient was informed and verbally consented to the use of an ambient scribe for clinic note documentation during this visit. Orders: Orders Comprehensive Reading. Panel Fast 10/23/24 R10.9 - Unspecified abdominal pain, Z00.00 - Encounter for general adult medical examination without abnormal findings CT NG by PCR 10/23/24 R10.9 - Unspecified abdominal pain, Z00.00 - Encounter fo r general adult medical examination without abnormal findings, Z11.3 - Encounter for screening for infections with a predominantly sexual mode of transmission UA CC w/rflx Micro + Cult 10/23/24 R10.9 - Unspecified abdominal pain, Z00.00 - Encounter for general adult medical examination without abnormal findings Glucose Fasting 10/23/24 R10.9 - Unspecified abdominal pain, Z00.00 - Encounter for general adult medical examination without abnormal findings US abdomen complete 10/21/24 R10.9 - Unspecified abdominal pain Syphilis Screen 10/23/24 Z11.3 - Encounter for screening for infections with a predominantly sexual mode of transmission Magnesium 10/23/24 R19.7 - Diarrhea, unspecified Complete Blood Count Auto Diff 10/23/24 R10.9 - Unspecified abdominal pain, Z00.00 - Encounter for general adult medical examination without abnormal findings HIV Ab/Ag 10/23/24 R10.9 - Unspecified abdominal pain, Z00.00 - Encounter for general adult medical examination without abnormal findings, Z11.3 - Encounter for screening for infections with a predominantly sexual mode of transmission TSH reflex Free T4 10/23/24 R10.9 - Unspecified abdominal pain, Z00.00 - Encounter for general adult medical examination without abnormal findings Lipid Panel 10/23/24 R10.9 - Unspecified abdominal pain, Z00.00 - Encounter for general adult medical examination without abnormal findings Vitamin D 25-OH Total 10/23/24 R10.9 - Unspecified abdominal pain, Z00.00 - Encounter for general adult medical examination without abnormal findings Erythrocyte Sedimentation Rate 10/23/24 R10.9 - Unspecified abdominal pain, Z00.00 - Encounter for general adult medical examination without abnormal findings CRP High Sensitivity 10/23/24 R10.9 - Unspecified abdominal pain, Z00.00 - Encounter for general adult medical examination without abnormal findings Medications: Discontinued doxycycline hyclate Discontinued Reason: Patient no longer taking 100 mg PO BID 7 days 14 tabs 0RF Patient Instructions: - Increase water intake to help reduce headache occurrences. - Schedule and fast before the comprehensive blood work. - Attend the scheduled abdominal ultrasound when contacted. - Monitor and report any persistent symptoms or changes in condition before the next appointment. - Follow up in 6 to 7 weeks for a comprehensive physical exam and review of results. - Contact the clinic with any questions or changes in symptoms.
--- OUTSIDE RECORDS SUMMARY | 2024-10-21 15:46 | XMS_ITS | Clinical Summary ---
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 28 capsule 10/23/2023 Active Active Problems No known active problems Social History Tobacco Use Types Packs/Day Years Used Date Smoking Tobacco: Never Passive Smoke Exposure: Never Smokeless Tobacco: Never Tobacco Cessation:Counseling Given: Not Answered Alcohol Use Standard Drinks/Week Comments Never 0 (1 standard drink = 0.6 oz pur e alcohol) Sex and Gender Information Value Date Recorded Sex Assigned at Male 04/29/2022 10:40 AM EDT Legal Sex Male 4:05 PM EDT Gender Identity Choose not to disclose 10:40 AM EDT Sexual Orientation Choose not to disclose 2021 10:40 AM EDT Last Filed Vital Signs Vital Sign Reading Time Taken Comments Blood Pressure 117/82 10/23/2023 8:49 AM EDT Pulse 79 10/23/2023 8:49 AM EDT Temperature 36.8 ??C (98.2 ??F) 10/23/2023 8:49 AM ED T Respiratory Rate 20 10/23/2023 8:49 AM EDT Oxygen Saturation 100% 10/23/2023 8:49 AM EDT Inhaled Oxygen Concentration - - Weight 83.6 kg (184 lb 6.4 oz) 10/23/2023 8:49 A M EDT Height 174.8 cm (5' 8.8 ) 08/14/2022 3:53 PM EST Body Mass Index 27.39 08/14/2022 3:53 PM EST Plan of Treatment Health Maintenance Due Date Last Done Comments Depression Screening 1985 HIV Screening 1985 Lipid Panel 1985 SDOH Screening 1985 Alcohol/Substance Use Screening 1997 Family Planning (PISQ) 2000 Hepatitis C Screening 2003 DTaP/Tdap/Td Vaccines (1 - Tdap) 2004 Hepatitis B Vaccines (1 of 3 - 19+ 3-dose series) 2004 Tobacco Screening 08/14/2023 08/14/2022 COVID-19 Vaccine (1 - 2023-2 5 season) 2024 Influenza Vaccine (#1) 2024 Zoster Vaccines (1 of 2) 2035 RSV Patients and Pa tients Aged 60 years or older (1 - 1-dose 75+ series) 2060 HIB Vaccines Aged Out No longer eligi ble based on patient's age to complete this topic HPV Vaccines Aged Out No longer eligi ble based on patient's age to complete this topic Hepatitis A Vaccines Aged Out No long er eligible based on patient's age to complete this topic IPV Vaccines Aged Out No longer eligi ble based on patient's age to complete this topic Meningococcal Vaccine Aged Out No norm lisa eligible based on patient's age to complete this topic Pneumococcal Vaccine: Pediat rics (0 to 5 Years) and At-Risk Patients (6 to 49) Years) Aged Out No longer elig ible based on patient's age to complete this topic RSV under 20 months Aged Out No longe r eligible based on patient's age to complete this topic Rotavirus Vaccines Aged Out No longer eligible based on patient's age to complete this topic [place] [address] [address] [place] [address]
--- OUTSIDE RECORDS SUMMARY | 2024-10-21 15:46 | XMS_ITS | Encounter Summary ---
Author Organization [employer] Address [address] [facility] [address] [place] [address] Care Team Providers Care Rn Acute Dialysis Name Role Phone Unavailable Primary Care Provider Unavailabl e Reason for Visit * Reason Onset Date Comments New Patient Appt 11/22/2022 Encounter Details Date Type Department Care Team ([facility] st Contact Info) Description 11/22/2022 Telephone [facility] MED[facility]INE [address] [place], [place] [phone] Festus Sherman MD [address] [place], [place] [phone] New Patient Appt Social History Tobacco Use Types Packs/Day Years Used Date Smoking Tobacco: Never Passive Smoke Exposure: Never Smokeless Tobacco: Never Alcohol Use Standard Drinks/Week Comments Never 0 (1 standard drink = 0.6 oz pur e alcohol) Sex and Gender Information Value Date Recorded Sex Assigned at Male 04/29/2022 10:40 AM EDT Legal Sex Male 4:05 PM EDT Gender Identity Choose not to disclose 10:40 AM EDT Sexual Orientation Choose not to disclose 2021 10:40 AM EDT documented as of this encounter Miscellaneous Notes * Telephone Encounter - Randell Cullen - 11/22/2022 8:50 AM EDT New Patients Par Randell Harrington called (2x) to schedule New patient appt, pt did not answer left voicemail to give a call at [phone]. documented in this encounter Plan of Treatment Not on file documented as of this encounter Visit Diagnoses Not on filedocumented in this encounter
== END 2024-10-21 14:27 | disposition home or self-care (01) ==
LOC: HO.HMCH 13:25
DX: R10.84 Generalized abdominal pain (principal); R51.9 Headache, unspecified; R15.1 Fecal smearing; R19.5 Other fecal abnormalities

== ENCOUNTER → 2024-10-21 13:24 | Outpatient (BNVA) | payer OTHER, SELFPAY | DX: Z76.89 Persons encountering health services in other specified circumstances (principal); R10.84 Generalized abdominal pain; R51.9 Headache, unspecified; R15.1 Fecal smearing; R19.5 Other fecal abnormalities | CPT/HCPCS: 96127 ==

== ENCOUNTER 2024-10-23 09:20 | Outpatient (REF) | payer OTHER, SELFPAY ==
--- OUTSIDE RECORDS SUMMARY | 2024-10-23 09:22 | XMS_ITS | Clinical Summary ---
Author Organization [employer] Address [address] [facility] [address] [place] [address] Care Team Providers Care Firer Retort Name Role Phone Unavailable Primary Care Provider [...] patient's age to complete this topic [place] [place] [address]
--- OUTSIDE RECORDS SUMMARY | 2024-10-23 09:22 | XMS_ITS | Encounter Summary ---
Author Organization [employer] Address [address] [facility] [address] [place] [address] Care Team Providers Care Apartment Maintenance Name Role Phone Unavailable Primary Care Provider Unavailabl e Reason for Visit * Reason Onset Date Comments New Patient Appt 11/22/2022 Encounter Details Date Type Department Care Team ([facility] st Contact Info) Description 11/22/2022 Telephone [facility] MEDICINE [address] [place], [place] [phone] Festus Sherman MD [address] [place], [place] [phone] New Patient Appt Social History Tobacco Use [...] left voicemail to give a call at [phone]. documented in this encounter Plan of Treatment Not on file documented as of this encounter Visit Diagnoses Not on filedocumented in this encounter
[2024-10-23 11:15] LABS: MANUAL DIFF FLAG NO
[2024-10-23 11:23] LABS: Appearance Urine Clear; Color Urine Yellow; Glucose Urine UA Negative (Negative); Leukocyte Esterase Urine Negative (Negative); Nitrite Urine Negative (Negative); PH 6.5 (5.0-9.0); Specific Gravity - Urine 1.025 (1.005-1.025); Urine Blood Negative (Negative); Urine Ketones Negative (Negative); Urine Protein Negative (Neg-Trace)
[2024-10-23 11:25] LABS: Basophils Percent Auto 0.4 % (0-2); Eosinophils Absolute Auto 0.1 X10*3/uL (0.0-0.4); Eosinophils Percent Auto 1.1 % (0-4); Hematocrit 46.9 % (42.0-52.0); Hemoglobin 16.3 g/dl (14.0-18.0); Imm Gran Abs Auto 0.03 X10*3/uL (0.00-0.03); Imm Gran Pct Auto 0.4 % (0.0-0.4); Lymphocytes Percent Auto 27.7 % (20-40); Mean Corpuscular HGB Conc 34.8 g/dl (31.0-36.0); Mean Corpuscular Volume 89.3 fL (80.0-98.0); Mean Platelet Volume 10.1 fL (9.4-12.4); Monocytes Absolute Auto 0.5 X10*3/uL (0.1-1.2); Monocytes Percent Auto 6.4 % (2-11); Neutrophils Absolute Auto 4.7 x10*3/uL (2.0-8.3); Platelet Count 279 X10*3/uL (160-400); Red Blood Count 5.25 X10*6/uL (4.60-5.80); Red Cell Distribution Width 11.5 % (11.0-16.0); White Blood Count 7.3 X10*3/uL (4.8-10.8)
[2024-10-23 12:16] LABS: Erythrocyte Sedimentation Rate 2 MM/HR (0-15)
[2024-10-23 12:34] LABS: Alanine Aminotransferase 24 U/L (0-40); Albumin Level 4.2 g/dL (3.5-5.0); Alkaline Phosphatase 76 U/L (39-117); Anion Gap 10 (12-20); Aspartate Amino Transferase 20 U/L (5-37); Bilirubin Total 0.5 mg/dL (0.0-1.0); Blood Urea Nitrogen 12 mg/dL (9-16); Calcium 9.1 mg/dL (8.4-10.2); Carbon Dioxide 25 mmol/L (22-29); Chloride 106 mmol/L (96-108); Cholesterol 191 mg/dL (<200); Estimated Glomerular Filt Rate > 60; Glucose Fasting 91 mg/dL (60-99); HDL Cholesterol 38 mg/dL (>40); LDL Cholesterol Calculated 132 mg/dL (<100); Magnesium 2.1 mg/dL (1.6-2.6); Potassium 3.9 mmol/L (3.3-5.1); Sodium 137 mmol/L (135-145); Total Protein 7.2 g/dL (6.5-8.0); Triglycerides 109 mg/dL (<150)
[2024-10-23 12:39] LABS: TSH reflex Free T4 0.56 uIU/mL (0.32-4.0); Vitamin D 25-OH Total 33.1 ng/mL (>30)
[2024-10-23 12:52] LABS: CT PCR NOT DETECTED (Not Detect.); NG PCR NOT DETECTED (Not Detect.)
[2024-10-25 08:06] LABS: HIV AB/AG Nonreactive (Nonreactive); HIV Num 1 0.06 S/CO (0.00-0.99)
[2024-10-25 08:07] LABS: Syphilis Screen Nonreactive (Nonreactive)
[2024-10-25 14:23] LABS: CRP High Sensitivity 1.7 mg/L
== END 2024-10-23 09:21 | disposition home or self-care (01) ==
LOC: HO.HMGCLDS 09:20
DX: Z00.00 Encounter for general adult medical examination without abnormal findings (principal); R10.9 Unspecified abdominal pain; Z11.3 Encounter for screening for infections with a predominantly sexual mode of transmission; R19.7 Diarrhea, unspecified
CPT/HCPCS: 80053; 80061; 81003; 82306; 83735; 84443; 85025; 85652; 86141; 86780; 87389; 87491; 87591

== ENCOUNTER 2024-11-02 08:25 | Outpatient (AMB) | payer OTHER, SELFPAY ==
--- NOTE | 2024-11-02 08:28 | A.OFFVIS_ITS ---
Vital Signs 11/02/24 08:41 Height 5 ft 7.5 in Weight 183 lb BMI 28.2 BP 123/83 Blood Pressure Location Lt brachial Position Sitting Pulse 84 Pulse Oximetry (%) 97 Oxygen Delivery Method Room Air Intake Visit Reasons: abd pain -see comments Intake Note: Patient new consult for abdominal pain. Patient cc: middle abdominal pain radiating to different side of abdomen with bloating, stool color/green between diarrhea and hard stool, acid reflux with burning sensation, also complaining of urine burning on and off. Patient have a CT scan and US at [facility]/he bring copies for his file. General Lot Attendant Required: No Accompanied by: Self / Same As Patient Allergies No Known Allergies Allergy (Verified 11/02/24 08:27) Medication List - Last Reconciled 11/02/24 by Nathalia Juárez CNP famotidine 20 mg PO DAILY PRN ondansetron 4 mg PO Q8H simethicone (Gas Relief (simethicone)) 80 mg PO BID-QID PRN HPI HPI abd pain -see comments: Details: Patient is a 39-year-old male who denies any PMH.? He was referred by his PCP for further evaluation of abdominal pain and fecal incontinence. The patient reports onset of abdominal pain approximately two weeks ago. He describes the pain as intermittent, with sensations of ?fire and pressure.? He also notes that his abdomen intermittently becomes hard. He denies any new medi cations or changes in diet that might account for these symptoms. The patient reports an urge to defecate after meals, with stools described as green in color and Type 3 on the [employer] Stool Chart. He notes that prior to the onset of symptoms, his stools were consistently Type 4. He denies fecal incontinencehard intermittently. He denies new medication or change in diet to account for symptoms. He reports urge to defecate after meals, type 3 on [employer] stool chart and green in color. States stools were consitent type 4 prior to onset of symptoms. He denies fecal incontinence. He sought emergency care at [facility] on 10/30/2024 for evaluation of his abdominal pain. Workup was negative for anemia, transaminitis, or gallbladder involvement. CT scan and abdominal ultrasound revealed multiple lesions in the liver, with suspicion for hepatic hemangiomas. An abdominal MRI was recommended for further evaluation and confirmation. He was discharged home with prescriptions for ondansetron and simethicone. He reports using simethicone up to four times daily with some relief. He is not currently taking the ondansetron. Aggravating factors: intermittent nausea and pyrosis Alleviating attempts: hydration + as above? Patient denies: fever/chills, vomiting, appetite changes, regurgitation, dysphasia, unintentional wt loss? or melena/hematochezia.? Social hx:? up to 3 beers X 1-2x/year? denies recreational drug use? non-smoker? -family hx as below -denies personal hx of CA -Reports hx of what sounds like palpitations approx one year ago. He denies any recent episode or other cardiopulmonary history/condition.? -tolerated anesthesia in the past without difficulty. [facility] Medical History (Updated 11/02/24 @ 09:45 by Nathalia Juárez CNP) Mild acid reflux Liver lesion History of fracture of clavicle No known health problems Surgical History Hx of appendectomy Family History Mother Diabetes Thyroid disease Father Colon polyps Son No problems noted. 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 Cognitive needs: No Hearing needs: No Vision needs: No Review of Systems Const Reports as per HPI ENT Reports as per HPI Card Reports as per HPI Resp Reports as per HPI GI Reports as per HPI Reports as per HPI Physical Exam Vital Signs: Last Vital Signs Pulse 84 11/02/24 08:41 BP 123/83 11/02/24 08:41 Pulse Ox 97 11/02/24 08:41 Oxygen Delivery Method Room Air 11/02/24 08:41 BMI result Body Mass Index 28.2 Const General: healthy appearing, no acute distress and well developed Nutritional Appearance: well nourished Orientation/consciousness: patient oriented x3 HEENT Head: Yes normal to inspection, Yes normocephalic and Yes atraumatic Face and sinus: Yes normal facial exam Eyes General: appearance normal, both eyes and all related structures Neck Neck: Yes normal visual inspection Resp Effort & Inspection: normal respiratory effort, able to speak in complete sentences, no tracheal deviation and symmetric chest movement Auscultation: clear to auscultation bilaterally Cardio Jugular venous distension: no JVD Rate: regular rate Rhythm: regular rhythm Heart sounds: S1 normal heart sound present, S2 normal heart sound present, no gallops and no murmurs GI Inspection: Yes normal to inspection and No distended Palpation (GI): Soft to palpation, not firm, nontender and No hepatosplenomegaly present Auscultation: normal bowel sounds Neuro General: patient oriented x3 Gait exam (Neuro): Normal gait present Psych Appearance: grossly normal Mental Status: mental status grossly normal Speech and movement: Normal speech and movement present Affect: normal affect Attitude: cooperative Thought process: Normal thought process present Thought content: Normal thought content present Insight: Good insight present (Psych) Judgement: Good judgement present (Psych) Assessment & Plan Assessment & Plan (1) Abdominal pain: Code(s): R10.9 - Unspecified abdominal pain Category: Medical Qualifiers: Abdominal location: epigastric Qualified Code(s): R10.13 - Epigastric pain Plan: Discuss suspicion for H pylori given acute onset. We will complete testing today in the office as he has not taken any PPI or consumed food. Reviewed ER results including labs, CT abdomen/pelvis and ultrasound collected on 10/30/2024, overall reassuring for no obvious GI etiology. However, we will obtain additional labs to rule out any inflammatory or other infectious source. May consider colonoscopy if workup unyielding. (2) Liver lesion: Code(s): K76.9 - Liver disease, unspecified Category: Medical Plan: There was some suspicion for multiple hepatic hemangioma on abdominal CT and ultrasound. We discussed findings and plan to obtain abdominal MRI as recommended. (3) Mild acid reflux: Code(s): K21.9 - Gastro-esophageal reflux disease without esophagitis Category: Medical Plan: Intermittent symptoms. We will trial H2 jeremías-Pepcid as needed. Education on GERD prevention : -Advised against heavy meals; encouraged small, frequent meals instead of large ones. - Instructed to remain upright for 2?3 hours after eating. - Advised to avoid late-night meals, spicy foods, caffeine, alcohol, known dietary triggers, and tight-fitting clothing. - Emphasis placed on gradual implementation of lifestyle changes to improve adherence and symptom control. Plan Follow-up in 3 weeks or sooner as needed. Time: I spent a total of 45 minutes on the date of encounter which includes: Preparing to see the patient (reviewed previous documentation, test results and medical history) Performing a medically appropriate exam and/or evaluation Ordering medications, tests, and procedures Documenting clinical information in the health record Orders: Orders Calprotectin, Fecal Today R10.84 - Generalized abdominal pain C Reactive Protein Today R10.84 - Generalized abdominal pain H Pylori Breath Test Today R10.84 - Generalized abdominal pain Transglutaminase IgA Today R10.84 - Generalized abdominal pain GI Panel Today R10.84 - Generalized abdominal pain MR abdomen wo/w con Today K76.9 - Liver disease, unspecified Medications: New famotidine Take one tablet daily as needed for acid reflux 20 mg PO DAILY PRN 90 tabs 1RF GERD Coding Level of Care Code New Pt New Pt Level 5 (94164) Patient Type New Diagnoses Epigastric pain R10.13 Abdominal location: epigastric Liver lesion K76.9 Mild acid reflux K21.9
[2024-11-02 08:41] VITALS: BP 123/83; PULSE 84; O2SAT 97; BMI 28.2
--- OUTSIDE RECORDS SUMMARY | 2024-11-02 08:45 | XMS_ITS | Clinical Summary ---
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
--- OUTSIDE RECORDS SUMMARY | 2024-11-02 08:45 | XMS_ITS | Encounter Summary ---
Author Organization [facility] Address [address] [place] [address] Care Team Providers Care Doughnut Icer Name Role Phone Nabeel Pérez Primary Care Provider [phone] Reason for Referral * Consultation (Routine) - Pending Review Specialty Diagnoses / Procedures Referred By Maria E degroot Referred To Contact Family Medicine Erika Vasquez PA [address] [place] [address] Phone: tel: fax: Nabeel Pérez [address] [place] [address], [address] [place] [address] Phone: tel: Referral ID Status Reason Start Date Expiration Date Visits Requested Visits Authorized [id number] Pending Review Specialty Services Required 10/30/2024 10/30/2025 1 1 Reason for Visit * Reason Comments Flank Pain Abdominal Pain X2 weeks Encounter Details Date Type Department Care Team (Late st Contact Info) Description 10/30/2024 7:32 AM EDT - 10/30/2024 1:36 PM EDT Emergency [facility] Emergency [address] [place] [id number] Abdominal pain, unspecified abdominal location (Primary Dx); Gastroenteritis Discharge Disposition: Home or Self Care Social History Tobacco Use Types Packs/Day Years Used Date Smoking Tobacco: Never Assessed Sex and Gender Information Value Date Recorded Sex Assigned at Male 10/30/2024 8:05 AM EDT Legal Sex Male 4:31 PM EST Gender Identity Male 10/30/2024 8:05 AM EDT Sexual Orientation Straight 10/30/2024 8: 05 AM EDT documented as of this encounter Last Filed Vital Signs Vital Sign Reading Time Taken Comments Blood Pressure 117/88 10/30/2024 11:53 AM EDT Pulse 69 10/30/2024 11:53 AM EDT Temperature 36.7 ??C (98 ??F) 10/30/2024 11:59 AM EDT Respiratory Rate 17 10/30/2024 6:52 AM EDT Oxygen Saturation 97% 10/30/2024 11:53 AM EDT Inhaled Oxygen Concentration - - Weight 83 kg (183 lb) 10/30/2024 6:52 AM EDT Height 170.2 cm (5' 7 ) 10/30/2024 6:52 AM EDT Body Mass Index 28.66 10/30/2024 6:52 AM EDT documented in this encounter Discharge Instructions * Discharge Instructions* BUD Lombardi - 10/30/2024 12:53 PM EDT You were evaluated for department today with nausea vomiting abdominal pain and diarrhea. All of your results including your labs CT scan and ultrasound with no findings to explain your symptoms. Take Zofran (ondansetron) as prescribed as needed for nausea. If nausea persists past 3 days, follow-up with your primary care provider for further evaluation. Take simethicone as needed this is for indigestion/gas pain. I recommend a bland diet such as bread rice applesauce toast. Be sure to drink lots of fluid. As discussed your CT scan showed nonspecific lesions on your liver, please follow-up with your primary care provider for further monitoring and evaluation of these. Please return to the emergency department if you develop new or worsening symptoms. Thank you for coming to the [facility] Emergency Department today. Our entire team works together to provide you with the best care possible. Examination and treatment you received in the emergency department has been rendered on an EMERGENCY basis only. It is not intended to be a substitute for or an effort to provide complete medical care. You should follow-up with your primary care provider. Please report to your physician any new or remaining problems, because it is impossible to recognize and treat all elements of injury or illness in a single emergency department visit. If you do not have a primary care provider or require a referral, you may contact facilities listedbel. In the event that you're unable to obtain a followup appointment in a timely fashion, OR youare not getting any better, OR you are getting worse, OR you develop any symptoms of concern, please return here immediately for further evaluation. The emergency department is open 24 hours a day, 7days a week. Your discharge report is based on information that was available when you were in the emergency department. If you do not have a primary care provider, please contact one of the following to make arrangements to follow up. [facility] Priya Angel Priya Tolu documented in this encounter Medications at Time of Discharge ondansetron ODT (ZOFRAN-ODT) 4 mg disintegrating tablet Let 1 tablet dissolve under the tongue three times daily as needed for nausea or vomiting. 10 tablet 10/30/2024 5 simethicone (MYLICON) 80 mg chewable tablet Chew 1 tablet (80 mg total) every 6 (six) hours if needed for flatulence for up to 10 days. 30 tablet 10/30/2024 5 documented as of this encounter Ordered Prescriptions Prescription Sig Dispense Quantity Refills Last Filled Start Date End Date simethicone (MYLICON) 80 mg chewable tablet Chew 1 tablet (80 mg total) every 6 (six) hours if needed for flatulence for up to 10 days. 30 tablet 10/30/2024 5 ondansetron ODT (ZOFRAN-ODT) 4 mg disintegrating tablet Let 1 tablet dissolve under the tongue three times daily as needed for nausea or vomiting. 10 tablet 10/30/2024 5 documented in this encounter Discharge Disposition Disposition Code Departure Means Destination Comment s Home or Self Care documented in this encounter Progress Notes * Shana Lucas RN - 10/30/2024 6:49 AM EDT Pt comes to ER with c/o right flank pain that started about a week ago. Denies any issues. Pt isalso c/o abdominal pain that's been going on x2 weeks with diarrhea anytime after he eats. Denies n/v. Pt a&ox4, ambulatory with steady gait. * BUD Lombardi - 10/30/2024 6:44 AM EDT Emergency Medicine Note Patient Name: Abram Stoll Initial Evaluation: 10/30/2024 : 1985 Patient's PCP: Nabeel Pérez Emergency Physician: BUD Lombardi History of Present Illness Chief Complaint: Chief Complaint Patient presents with Flank Pain Abdominal Pain X2 weeks HPI: This is a 39-year-old male with no reported past medical history presenting today with abdominal pain. Patient reports for the past 2 weeks he has had an intermittent abdominal pain with diarrhea andnausea. Reports diarrhea after eating every time I eat . Pain is crampy and periumbilical worse onthe right side. He reports an abdominal surgical history of appendectomy. He also endorses right sided lower back pain. He denies known fever, cough or cold symptoms, chest pain or shortness of breath, vomiting, dysuria. He reports he has had a history of nephrolithiasis in the past however this does not feel the same to him. Reports his pain is 10 out of 10. ROS: I have performed a ROS with the pertinent positives and negatives documented in the history ofpresent illness. Previous History History reviewed. No pertinent past medical history. History reviewed. No pertinent surgical history. No family history on file. has No Known Allergies. No current facility-administered medications on file prior to encounter. No current outpatient medications on file prior to encounter. Physical Exam ED Triage Vitals [10/30/24 0652] Temp Heart Rate Resp BP 36.8 ??C (98.2 ??F) 85 17 113/79 SpO2 Temp Source Heart Rate Source Patient Position 98 % Oral Monitor Sitting BP Location FiO2 (%) Left arm -- General: awake, calm, cooperative, in no acute distress. Skin: warm, dry, no diaphoresis. Eyes: PERRLA, EOMI. No conjunctival injection, no lid lag noted. ENMT: Oral mucosa is moist, normal phonation, managing secretions. Respiratory: lungs clear to auscultation bilaterally, no increased work of breathing. Cardiovascular: regular rate and rhythm, no murmur, no peripheral edema. Equal pulses in all four extremities. Gastrointestinal: Soft, nondistended, tender palpation right upper and lower quadrants with guarding no rebound. No CVA tenderness. +BS x4 MSK: Moving all extremities spontaneously, ambulatory Neurologic: Awake, alert, and oriented x3. No focal deficits. Psychiatric: Appropriate mood and affect Results Vitals: 10/30/24 0652 10/30/24 0938 10/30/24 1153 10/30/24 1159 BP: 113/79 110/80 117/88 BP Location: Left arm Patient Position: Sitting Pulse: 85 69 69 Resp: 17 Temp: 36.8 ??C (98.2 ??F) 36.7 ??C (98 ??F) TempSrc: Oral SpO2: 98% 98% 97% Weight: 83 kg (183 lb) Height: 1.702 m (67 ) Labs Reviewed COMPREHENSIVE METABOLIC PANEL - Normal Result Value Sodium 136 Potassium 4.0 Chloride 104 CO2 24 Anion Gap 8 Glucose 99 BUN 12 Creatinine 0.81 eGFR 115 BUN/Creatinine Ratio 14.8 Calcium 8.9 AST (SGOT) 14 ALT (SGPT) 24 Alkaline Phosphatase 79 Total Protein 7.2 Albumin 3.8 Total Bilirubin 0.6 LIPASE - Normal Lipase 26 URINALYSIS WITH REFLEX MICROSCOPIC AND CULTURE - Normal Specific Sanders Urine 1.023 pH, Urine 5.5 Leukocytes, Urine Negative Nitrite, Urine Negative Protein, Urine Negative Glucose, Urine Negative Ketones, Urine Negative Urobilinogen, Urine 0.2 Bilirubin, Urine Negative Blood, Urine Negative CBC AND DIFFERENTIAL Narrative: The following orders were created for panel order CBC and differential. Procedure Abnormality Status --------- ------ CBC auto differential[[id number]] Final result Please view results for these tests on the individual orders. URINALYSIS WITH REFLEX MICROSCOPIC AND CULTURE Narrative: The following orders were created for panel order Urinalysis with reflex microscopic and culture. Procedure Abnormality Status --------- ------ Urinalysis with reflex ...[[id number]] Normal Final result Zendejas urine culture tube[[id number]] Final result Please view results for these tests on the individual orders. CBC WITH AUTO DIFFERENTIAL WBC 7.2 RBC 5.10 Hemoglobin 16.0 Hematocrit 46.3 MCV 90.3 MCH 31.2 MCHC 34.6 RDW 11.6 Platelets 270 MPV 9.4 NRBC 0.0 NRBC Absolute 0.00 Neutrophils Relative 63.9 Lymphocytes Relative 26.2 Monocytes Relative 7.9 Eosinophils Relative 1.3 Basophils Relative 0.4 Immature Granulocytes Relative 0.3 Neutrophils Absolute 4.59 Lymphocytes Absolute 1.88 Monocytes Absolute 0.57 Eosinophils Absolute 0.09 Basophils Absolute 0.03 Immature Granulocytes Absolute 0.02 Abnormal Labs Reviewed - No abnormal labs to display US Abdomen Limited Final Result NO CHOLELITHIASIS, BILIARY DUCTAL DILATATION, OR EVIDENCE OF CHOLECYSTITIS. 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 ABDOMINAL MRI AGAIN RECOMMENDED TO CONFIRM. -------- FINAL REPORT -------- Dictated By: ALBERT JULIEN Dictated Date: 10/30/2024 12:37 ET Assigned Physician: ALBERT JULEIN Reviewed and Electronically Signed By: ALBERT JULIEN Signed Date: 10/30/2024 12:41 ET Workstation ID: [id number] Transcribed By: Self Edit Transcribed Date: 10/30/2024 12:[address] Abdomen Pelvis w Contrast Final Result No acute findings in the abdomen/pelvis. Multiple liver lesions are most likely hepatic hemangiomas but are incompletely characterized. Nonemergent abdominal MRI without and with contrast recommended to further characterize. A copy of this report will be provided to the [facility] [employer] Program. -------- FINAL REPORT -------- Dictated By: ALBERT JULIEN Dictated Date: 10/30/2024 09:17 ET Assigned Physician: ALBERT JULIEN Reviewed and Electronically Signed By: ALBERT JULIEN Signed Date: 10/30/2024 09:39 ET Workstation ID: [id number] Transcribed By: Self Edit Transcribed Date: 10/30/2024 09:17 ET Critical Care Time None ? Differential Diagnosis Gastroenteritis, cholecystitis, biliary colic, choledocholithiasis, diverticulitis, electrolyte derangement, urinary tract infection, pyelonephritis, nephrolithiasis Medical Decision Making 39-year-old male presenting with intermittent abdominal pain with diarrhea worse after eating x 2 weeks. On exam patient is alert and oriented no acute distress he is hemodynamically stable and afebrile. Cardiopulmonary exam is unremarkable. Abdomen is soft, nondistended, tender palpation right upper and lower quadrants with guarding no rebound. No CVA tenderness. +BS x4. Patient's labs are unremarkable there is no leukocytosis or TOM no electrolyte derangement. UA is negative. Patient is currently pending a CT abdomen pelvis. IV fluids Zofran and morphine. Medications sodium chloride 0.9 % bolus 1,000 mL (0 mL intravenous Stopped 10/30/24 1000) ondansetron (PF) (ZOFRAN) injection 4 mg (4 mg intravenous Given 10/30/24 0838) morphine injection 4 mg (4 mg intravenous Given 10/30/24 0838) sodium chloride 0.9 % flush 10 mL (10 mL intravenous Given 10/30/24 0859) iopamidoL (ISOVUE-370) 370 mg iodine /mL (76 %) injection 90 mL (90 mL intravenous Given 10/30/24 0859) famotidine (PF) (PEPCID) injection 20 mg (20 mg intravenous Given 10/30/24 0959) aluminum-magnesium hydroxide-simethicone (MAALOX) 200-200-20 mg/5 mL suspension 30 mL (30 mL oral Given 10/30/24 1254) lidocaine (XYLOCAINE) 2 % mouth solution 15 mL (15 mL Mouth/Throat Given 10/30/24 1254) ED Course as of 10/30/24 1646 Sat October 30, [address] Abdomen Pelvis w Contrast No acute findings in the abdomen/pelvis. Multiple liver lesions are most likely hepatic hemangiomas but are incompletely characterized. Nonemergent abdominal MRI without and with contrast recommended to further characterize. A copy of this report will be provided to the [facility] FIND Program. [BT] 1249 US Abdomen Limited NO CHOLELITHIASIS, BILIARY DUCTAL DILATATION, OR EVIDENCE OF CHOLECYSTITIS. 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 ABDOMINAL MRI AGAIN RECOMMENDED TO CONFIRM. [BT] 1249 Patient received GI cocktail for symptomatic relief. Have discussed all imaging findings and he expressed understanding. Recommend follow-up with PCP for liver lesions and further monitoring of this. Return precautions discussed and acknowledged. [BT] ED Course User Index [BT] BUD Lombardi Clinical Impressions as of 10/30/241645 Abdominal pain, unspecified abdominal location Gastroenteritis Procedures Procedures Diagnosis 1. Abdominal pain, unspecified abdominal location 2. Gastroenteritis Disposition Discharge ED Prescriptions Medication Sig Dispense Start Date End Date Auth. Provider ondansetron ODT (ZOFRAN-ODT) 4 mg disintegrating tablet Let 1 tablet dissolve under the tongue three times daily as needed for nausea or vomiting. 10 tablet 10/30/2024 11/06/2024 BUD Lombardi simethicone (MYLICON) 80 mg chewable tablet Chew 1 tablet (80 mg total) every 6 (six) hours if needed for flatulence for up to 10 days. 30 tablet 10/30/2024 11/09/2024 BUD Lombardi Physician Attestation BUD Lombardi 10/30/24 0835 BUD Lombardi 10/30/24 1646 Cosigned by Tuan Mendoza DO at 10/31/2024 8:00 AM EDT documented in this encounter Plan of Treatment Scheduled Referrals Name Type Priority Associated Diagnoses Order Schedule Ambulatory referral to Family Practice Outpatient Referral Routine 1 Occurre nces starting 10/30/2024 until 10/30/2025 documented as of this encounter Procedures Procedure Name Priority Date/Time Associated Diagnosis Comments US ABDOMEN LIMITED STAT 10/30/2024 12 :[address] ABDOMEN PELVIS W CONTRAST STAT 10/30/2024 9:02 AM EDT URINALYSIS WITH REFLEX MICROSCOPIC AND CULTURE STAT 10/30/2024 7:25 AM EDT ZENDEJAS URINE CULTURE TUBE STAT 10/30/2024 7:25 AM EDT CBC WITH AUTO DIFFERENTIAL STAT 10/30/2024 7:25 AM EDT URINALYSIS WITH REFLEX MICROSCOPIC AND CULTURE STAT 10/30/2024 7:25 AM EDT CBC AND DIFFERENTIAL STAT 10/30/2024 7:25 AM EDT LIPASE STAT 10/30/2024 7:25 AM EDT COMPREHENSIVE METABOLIC PANEL STAT 10/30/2024 7:25 AM EDT documented in this encounter Results * US Abdomen Limited (10/30/2024 12:38 PM EDT) Anatomical Region Laterality Modality Body Ultrasound 10/30/2024 12:3 7 PM EDT Impressions 10/30/2024 12:41 PM EDT NO CHOLELITHIASIS, BILIARY DUCTAL DILATATION, OR EVIDENCE OF CHOLECYSTITIS. 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 ??ABDOMINAL MRI AGAIN RECOMMENDED TO CONFIRM. -------- FINAL REPORT -------- Dictated By: ALBERT JULIEN Dictated Date: 10/30/2024 12:37 ET Assigned Physician: ALBERT JULIEN Reviewed and Electronically Signed By: ALBERT JULIEN Signed Date: 10/30/2024 12:41 ET Workstation ID: [id number] Transcribed By: Self Edit Transcribed Date: 10/30/2024 12:37 ET Narrative 10/30/2024 12:41 PM EDT PROCEDURE: US ABDOMEN LIMITED INDICATION: Pain TECHNIQUE: ??2-D zendejas scale, color Doppler ultrasound of the abdomen. COMPARISON: Same day CT. FINDINGS: The visualized portions of the pancreas, aorta, and IVC are within normal limits. Multiple echogenic lesions are seen throughout the liver measuring up to 3.3 cm in the left liver. ??Normal directional flow within the main portal vein. Gallbladder is normal. ??No gallbladder wall thickening or pericholecystic fluid. ??Sonographic Jones sign is negative. No biliary duct dilatation. ??Common bile duct measures 4 mm. Right kidney is normal and measures 10.7 cm in length. No ascites. Procedure Note Albert Julien MD - 10/30/2024 PROCEDURE: US ABDOMEN LIMITED INDICATION: Pain TECHNIQUE: 2-D zendejas scale, color Doppler ultrasound of the abdomen. COMPARISON: Same day CT. FINDINGS: The visualized portions of the pancreas, aorta, and IVC arewithin normal limits. Multiple echogenic lesions are seen throughout the liver measuring up to3.3 cm in the left liver. Normal directional flow within the main portalvein. Gallbladder is normal. No gallbladder wall thickening or pericholecysticfluid. Sonographic Jones sign is negative. No biliary duct dilatation. Common bile duct measures 4 mm. Right kidney is normal and measures 10.7 cm in length. No ascites. IMPRESSION: NO CHOLELITHIASIS, BILIARY DUCTAL DILATATION, OR EVIDENCE OFCHOLECYSTITIS. MULTIPLE ECHOGENIC LIVER LESIONS, MOST LIKELY HEPATIC HEMANGIOMAS.ABDOMINAL MRI AGAIN RECOMMENDED TO CONFIRM. -------- FINAL REPORT -------- Dictated By: ALBERT JULIEN Dictated Date: 10/30/2024 12:37 ET Assigned Physician: ALBERT JULIEN Reviewed and Electronically Signed By: ALBERT JULIEN Signed Date: 10/30/2024 12:41 ET Workstation ID: [id number] Transcribed By: Self Edit Transcribed Date: 10/30/2024 12:37 ET us Erika FARRELL IMAlfredo US PROCEDURES Final Result * CT Abdomen Pelvis w Contrast (10/30/2024 9:02 AM EDT) Anatomical Region Laterality Modality Body Computed Tomogra phy 10/30/2024 9:17 AM EDT Impressions 10/30/2024 9:39 AM EDT No acute findings in the abdomen/pelvis. Multiple liver lesions are most likely hepatic hemangiomas but are incompletely characterized. ??Nonemergent abdominal MRI without and with contrast recommended to further characterize. A copy of this report will be provided to the [facility] [employer] Program. -------- FINAL REPORT -------- Dictated By: ALBERT JULIEN Dictated Date: 10/30/2024 09:17 ET Assigned Physician: ALBERT JULIEN Reviewed and Electronically Signed By: ALBERT JULIEN Signed Date: 10/30/2024 09:39 ET Workstation ID: [id number] Transcribed By: Self Edit Transcribed Date: 10/30/2024 09:17 ET Narrative 10/30/2024 9:39 AM EDT PROCEDURE: CT ABDOMEN/PELVIS INDICATION: Pain TECHNIQUE: CT of the abdomen and pelvis following the intravenous administration of 90cc Isovue 370. Multiplanar reformats. The examination was performed utilizing dose reduction techniques. Total DLP 872 COMPARISON: ??01/25/2017 FINDINGS: ?? LOWER THORAX: Left basilar atelectasis. HEPATOBILIARY: Hypodensities scattered throughout the liver with foci of peripheral nodular enhancement. ??For example within the right posterior inferior liver measuring 14 mm and within the left dome measuring 23 mm. ??Liver lesions are difficult to compare to the prior noncontrast CT due to differences in technique. ??Gallbladder and biliary tree are normal. SPLEEN: No splenomegaly. PANCREAS: No focal mass or ductal dilatation. ADRENALS: No nodules. KIDNEYS/URETERS: No hydronephrosis, stones, or solid mass. PELVIC ORGANS/BLADDER: Unremarkable. PERITONEUM / RETROPERITONEUM: No ascites or free air. No retroperitoneal lymphadenopathy. VESSELS: Portal vein is patent. ??Abdominal aorta is normal in size. GI TRACT: No bowel obstruction or wall thickening. ??Normal appendix. BONES AND SOFT TISSUES: Small fat-containing periumbilical hernia. ??Bones are normal. Procedure Note Albert Julien MD - 10/30/2024 PROCEDURE: CT ABDOMEN/PELVIS INDICATION: Pain TECHNIQUE: CT of the abdomen and pelvis following the intravenousadministration of 90cc Isovue 370. Multiplanar reformats. The examinationwas performed utilizing dose reduction techniques. Total DLP 872 COMPARISON: 01/25/2017 FINDINGS: LOWER THORAX: Left basilar atelectasis. HEPATOBILIARY: Hypodensities scattered throughout the liver with foci ofperipheral nodular enhancement. For example within the right posteriorinferior liver measuring 14 mm and within the left dome measuring 23 mm.Liver lesions are difficult to compare to the prior noncontrast CT due todifferences in technique. Gallbladder and biliary tree are normal. SPLEEN: No splenomegaly. PANCREAS: No focal mass or ductal dilatation. ADRENALS: No nodules. KIDNEYS/URETERS: No hydronephrosis, stones, or solid mass. PELVIC ORGANS/BLADDER: Unremarkable. PERITONEUM / RETROPERITONEUM: No ascites or free air. No retroperitoneallymphadenopathy. VESSELS: Portal vein is patent. Abdominal aorta is normal in size. GI TRACT: No bowel obstruction or wall thickening. Normal appendix. BONES AND SOFT TISSUES: Small fat-containing periumbilical hernia. Bonesare normal. IMPRESSION: No acute findings in the abdomen/pelvis. Multiple liver lesions are most likely hepatic hemangiomas but areincompletely characterized. Nonemergent abdominal MRI without and withcontrast recommended to further characterize. A copy of this report will be provided to the [facility]. -------- FINAL REPORT -------- Dictated By: ALBERT JULIEN Dictated Date: 10/30/2024 09:17 ET Assigned Physician: ALBERT JULIEN Reviewed and Electronically Signed By: ALBERT JULIEN Signed Date: 10/30/2024 09:39 ET Workstation ID: [id number] Transcribed By: Self Edit Transcribed Date: 10/30/2024 09:17 ET Erika FARRELL IMG CT PROCEDURES Final Result * Zendejas urine culture tube (10/30/2024 7:25 AM EDT) Extra Tube Hold for add-ons. 10/30/2024 9:01 AM EDT [facility] Comment:Auto resulted. Urine Urine specimen obtained by clean catch procedure / Unknown Non-blood Collection / Unknown 10/30/2024 7:25 AM EDT 10/30/2024 7:29 AM EDT Fabrice Weldon DO LAB URINE ORDERABLES Final Result [facility] [address] [place] [address], [place] [phone] * Urinalysis with reflex microscopic and culture (10/30/2024 7:25 AM EDT) Specific Sanders Urine 1.023 1.003 - 1.030 LAB URINALYSIS - AUTOMATED METHOD 10/30/2024 7:52 AM [facility] pH, Urine 5.5 5.0 - 8.0 pH LAB URINALYSIS - AUTOMATED METHOD 10/30/2024 7:52 AM [facility] Leukocytes, Urine Negative Negative LAB URINALYSIS - AUTOMATED METHOD 10/30/2024 7:52 AM [facility] Nitrite, Urine Negative Negative LAB URINALYSIS - AUTOMATED METHOD 10/30/2024 7:52 AM [facility] Protein, Urine Negative <=Trace mg/dL LAB URINALYSIS - AUTOMATED METHOD 10/30/2024 7:52 AM [facility] Glucose, Urine Negative Negative mg/dL LAB URINALYSIS - AUTOMATED METHOD 10/30/2024 7:52 AM [facility] Ketones, Urine Negative Negative mg/dL LAB URINALYSIS - AUTOMATED METHOD 10/30/2024 7:52 AM [facility] Urobilinogen, Urine 0.2 0.2 - 1.0 mg/dL LAB URINALYSIS - AUTOMATED METHOD 10/30/2024 7:52 AM [facility] Bilirubin, Urine Negative Negative LAB URINALYSIS - AUTOMATED METHOD 10/30/2024 7:52 AM [facility] Blood, Urine Negative Negative LAB URINALYSIS - AUTOMATED METHOD 10/30/2024 7:52 AM [facility] Urine Urine specimen obtained by clean catch procedure / Unknown Non-blood Collection / Unknown 10/30/2024 7:25 AM EDT 10/30/2024 7:29 AM EDT us Fabrice Weldon DO LAB URINE ORDERABLES Final Result [facility] [address] [place] [address], * CBC auto differential (10/30/2024 7:25 AM EDT) [facility] Signature WBC 7.2 4.8 - 10.8 K/mcL LAB HEMETOLOGY METHOD 10/30/2024 7:37 AM EDT [facility] RBC 5.10 4.50 - 5.50 M/mcL LAB HEMETOLOGY METHOD 10/30/2024 7:37 AM EDT [facility] Hemoglobin 16.0 13.5 - 17.5 g/dL LAB HEMETOLOGY METHOD 10/30/2024 7:37 AM EDT [facility] Hematocrit 46.3 42.0 - 54.0 % LAB HEMETOLOGY METHOD 10/30/2024 7:37 AM EDT [facility] MCV 90.3 79.0 - 98.0 FL LAB HEMETOLOGY METHOD 10/30/2024 7:37 AM EDT [facility] MCH 31.2 27.0 - 32.0 pcg LAB HEMETOLOGY METHOD 10/30/2024 7:37 AM EDT [facility] MCHC 34.6 32.0 - 37.0 g/dL LAB HEMETOLOGY METHOD 10/30/2024 7:37 AM EDT [facility] RDW 11.6 11.0 - 15.0 % LAB HEMETOLOGY METHOD 10/30/2024 7:37 AM EDT [facility] Platelets 270 130 - 400 K/mcL LAB HEMETOLOGY METHOD 10/30/2024 7:37 AM EDT [facility] MPV 9.4 7.0 - 11.0 FL LAB HEMETOLOGY METHOD 10/30/2024 7:37 AM EDT [facility] NRBC 0.0 <1.0 % LAB HEMETOLOGY METHOD 10/30/2024 7:37 AM [facility] NRBC Absolute 0.00 <0.10 K/mcL LAB HEMETOLOGY METHOD 10/30/2024 7:37 AM [facility] Neutrophils Relative 63.9 % LAB HEMETOLOGY METHOD 10/30/2024 7:37 AM [facility] Lymphocytes Relative 26.2 % LAB HEMETOLOGY METHOD 10/30/2024 7:37 AM [facility] Monocytes Relative 7.9 % LAB HEMETOLOGY METHOD 10/30/2024 7:37 AM [facility] Eosinophils Relative 1.3 % LAB HEMETOLOGY METHOD 10/30/2024 7:37 AM [facility] Basophils Relative 0.4 % LAB HEMETOLOGY METHOD 10/30/2024 7:37 AM [facility] Immature Granulocytes Relative 0.3 % LAB HEMETOLOGY METHOD 10/30/2024 7:37 AM [facility] Neutrophils Absolute 4.59 1.50 - 7.00 K/mcL LAB HEMETOLOGY METHOD 10/30/2024 7:37 AM [facility] Lymphocytes Absolute 1.88 1.00 - 5.00 K/mcL LAB HEMETOLOGY METHOD 10/30/2024 7:37 AM [facility] Monocytes Absolute 0.57 0.20 - 1.00 K/mcL LAB HEMETOLOGY METHOD 10/30/2024 7:37 AM [facility] Eosinophils Absolute 0.09 0.00 - 0.50 K/mcL LAB HEMETOLOGY METHOD 10/30/2024 7:37 AM [facility] Basophils Absolute 0.03 0.00 - 0.20 K/mcL LAB HEMETOLOGY METHOD 10/30/2024 7:37 AM [facility] Immature Granulocytes Absolute 0.02 0.00 - 0.03 K/[facility] LAB HEMETOLOGY METHOD 10/30/2024 7:37 AM EDT [facility] Blood Venous blood specimen / Unknown Venipuncture / Unknown 10/30/2024 7:25 AM EDT 10/30/2024 7:30 AM EDT Fabrice Weldon DO LAB BLOOD ORDERABLES Final Result Performing Organization Address City/[facility]/ZIP Co de Phone Number [facility] [address] [place] [address], [place] [phone] * Lipase (10/30/2024 7:25 AM EDT) Pathologist [facility] Lipase 26 13 - 75 unit/L LAB CHEMISTRY METHOD 10/30/2024 8:06 AM EDT [facility] Blood Venous blood specimen / Unknown Venipuncture / Unknown 10/30/2024 7:25 AM EDT 10/30/2024 7:30 AM EDT us Fabrice Weldon DO LAB BLOOD ORDERABLES Final Result Performing Organization Address [facility]/[place] Co de Phone Number [facility] [address] [place] [address], [place] [phone] * Comprehensive metabolic panel (10/30/2024 7:25 AM EDT) Sodium 136 133 - 145 mmol/L LAB CHEMISTRY METHOD 10/30/2024 8:06 AM EDT [facility] Potassium 4.0 3.5 - 5.5 mmol/L LAB CHEMISTRY METHOD 10/30/2024 8:06 AM EDT [facility] Chloride 104 96 - 110 mmol/L LAB CHEMISTRY METHOD 10/30/2024 8:06 AM EDT [facility] CO2 24 21 - 32 mmol/L LAB CHEMISTRY METHOD 10/30/2024 8:06 AM EDT [facility] Anion Gap 8 3 - 11 LAB CHEMISTRY METHOD 10/30/2024 8:06 AM [facility] Glucose 99 70 - 100 mg/dL LAB CHEMISTRY METHOD 10/30/2024 8:06 AM [facility] BUN 12 5 - 25 mg/dL LAB CHEMISTRY METHOD 10/30/2024 8:06 AM [facility] Creatinine 0.81 0.70 - 1.30 mg/dL LAB CHEMISTRY METHOD 10/30/2024 8:06 AM [facility] eGFR 115 >=60 mL/min/1. 73m2 LAB CHEMISTRY METHOD 10/30/2024 8:06 AM [facility] Comment:Calculation based on the??Chronic Kidney Disease Epidemiology Collaboration (CKD-EPI) equation refit??without adjustment for race. BUN/Creatinine Ratio 14.8 LAB CHEMISTRY METHOD 10/30/2024 8:06 AM [facility] Calcium 8.9 8.5 - 10.5 mg/dL LAB CHEMISTRY METHOD 10/30/2024 8:06 AM [facility] AST (SGOT) 14 10 - 42 unit/L LAB CHEMISTRY METHOD 10/30/2024 8:06 AM [facility] ALT (SGPT) 24 10 - 60 unit/L LAB CHEMISTRY METHOD 10/30/2024 8:06 AM [facility] Alkaline Phosphatase 79 42 - 121 unit/L LAB CHEMISTRY METHOD 10/30/2024 8:06 AM [facility] Total Protein 7.2 6.0 - 8.0 g/dL LAB CHEMISTRY METHOD 10/30/2024 8:06 AM [facility] Albumin 3.8 3.2 - 5.0 g/dL LAB CHEMISTRY METHOD 10/30/2024 8:06 AM [facility] Total Bilirubin 0.6 0.0 - 1.4 mg/dL LAB CHEMISTRY METHOD 10/30/2024 8:06 AM EDT [facility] Blood Venous blood specimen / Unknown Venipuncture / Unknown 10/30/2024 7:25 AM EDT 10/30/2024 7:30 AM EDT us Fabrice Benito Weldon DO LAB BLOOD ORDERABLES Final Result [facility] [address] [place] [address], documented in this encounter Visit Diagnoses Diagnosis Abdominal pain, unspecified abdominal location- Primary Gastroenteritis Other and unspecified noninfectious gastroenteritis and colitis documented in this encounter Administered Medications Inactive Administered Medications - up to 3 most recent administrations Medication Order MAR Action Action Date Dose Rate Site aluminum-magnesium hydroxide-simethicone (MAALOX) 200-200-20 mg/5 mL suspension 30 mL 30 mL, oral, Once, On 10/30/24 at 1203, For 1 dose Given 10/30/2024 12:54 PM EDT 30 mL famotidine (PF) (PEPCID) injection 20 mg 20 mg, intravenous, Administer over 2 Minutes, Once, On 10/30/24 at 0947, For 1 dose Given 10/30/2024 9:59 AM EDT 20 mg iopamidoL (ISOVUE-370) 370 mg iodine /mL (76 %) injection 90 mL 90 mL, intravenous, Once in imaging, Starting on 10/30/24 at 0859, For 1 dose Given 10/30/2024 8:59 AM EDT 90 mL lidocaine (XYLOCAINE) 2 % mouth solution 15 mL 15 mL, Mouth/Throat, Once, On 10/30/24 at 1203, For 1 dose Given 10/30/2024 12:54 PM EDT 15 mL morphine injection 4 mg 4 mg, intravenous, Once, On 10/30/24 at 0827, For 1 dose Given 10/30/2024 8:38 AM EDT 4 mg ondansetron (PF) (ZOFRAN) injection 4 mg 4 mg, intravenous, Once, On 10/30/24 at 0827, For 1 dose Given 10/30/2024 8:38 AM EDT 4 mg sodium chloride 0.9 % bolus 1,000 mL 1,000 mL, intravenous, at 2,000 mL/hr, Administer over 30 Minutes, Once, On 10/30/24 at 0827, For 1 dose New Bag 10/30/2024 8:38 AM EDT 1,000 mL 2000 mL/hr sodium chloride 0.9 % flush 10 mL 10 mL, intravenous, Once, On 10/30/24 at 0900, For 1 dose Given 10/30/2024 8:59 AM EDT 10 mL documented in this encounter Active and Recently Administered Medications Times are shown in EDT. Scheduled Medication Order 10/28/2024 10/29/2024 10/30/2024 aluminum-magnesium hydroxide-simethicone (MAALOX) 200-200-20 mg/5 mL suspension 30 mL (COMPLETED) 30 mL, oral, Once, On 10/30/24 at 1203, For 1 dose 1254 (Given - Provid er: Josefa Villalobos RN) famotidine (PF) (PEPCID) injection 20 mg (COMPLETED) 20 mg, intravenous, Administer over 2 Minutes, Once, On 10/30/24 at 0947, For 1 dose 0959 (Given - Provid er: Josefa Villalobos RN) iopamidoL (ISOVUE-370) 370 mg iodine /mL (76 %) injection 90 mL (COMPLETED) 90 mL, intravenous, Once in imaging, Starting on 10/30/24 at 0859, For 1 dose 0859 (Given - Provid er: Kamila Villegas) lidocaine (XYLOCAINE) 2 % mouth solution 15 mL (COMPLETED) 15 mL, Mouth/Throat, Once, On 10/30/24 at 1203, For 1 dose 1254 (Given - Provid er: Josefa Villalobos RN) morphine injection 4 mg (COMPLETED) 4 mg, intravenous, Once, On 10/30/24 at 0827, For 1 dose 0838 (Given - Provid er: Josefa Villalobos RN) ondansetron (PF) (ZOFRAN) injection 4 mg (COMPLETED) 4 mg, intravenous, Once, On 10/30/24 at 0827, For 1 dose 0838 (Given - Provid er: Josefa Villalobos RN) sodium chloride 0.9 % bolus 1,000 mL (COMPLETED) 1,000 mL, intravenous, at 2,000 mL/hr, Administer over 30 Minutes, Once, On 10/30/24 at 0827, For 1 dose 0838 (New Bag - Prov ider: Josefa Villalobos, RN)1000 (Stopped - Provider: Josefa Villalobos, RN) sodium chloride 0.9 % flush 10 mL (COMPLETED) 10 mL, intravenous, Once, On 10/30/24 at 0900, For 1 dose 0859 (Given - Provid er: Kamila Villegas) documented in this encounter Care Teams Doughnut Icer Relationship Specialty Start Date End Date Nabeel Pérez [address] [place] [address] PCP - General Family Medicine 10/30/24 documented as of this encounter
--- OUTSIDE RECORDS SUMMARY | 2024-11-02 08:45 | XMS_ITS | Encounter Summary ---
Author Organization [employer] Address [address] [facility] [address] [facility] [address] [place] [address] Care Team Providers Care Hospital Education Coordinator Name Role Phone Unavailable Primary Care Provider Unavailabl e Reason for Visit * Reason Onset Date Comments New Patient Appt 11/22/2022 Encounter Details Date Type Department Care Team (Late st Contact Info) Description 11/22/2022 Telephone [facility] MEDICINE [address] [place], [place] [phone] Festus Sherman MD [address] [place], [place] [phone] New Patient Appt Social History Tobacco Use [...] left voicemail to give a call at [phone]. documented in this encounter Plan of Treatment Not on file documented as of this encounter Visit Diagnoses Not on filedocumented in this encounter
== END 2024-11-02 09:46 | disposition home or self-care (01) ==
LOC: HO.HGI 08:26
PROVIDERS: Visit Provider Nurse Practitioner Family
DX: R10.13 Epigastric pain (principal); K76.9 Liver disease, unspecified; K21.9 Gastro-esophageal reflux disease without esophagitis
CPT/HCPCS: 99204

== ENCOUNTER 2024-11-02 08:25 | Outpatient (REF) | payer OTHER, SELFPAY ==
[2024-11-03 14:40] LABS: H Pylori Breath Test Positive (Negative)
--- OUTSIDE RECORDS SUMMARY | 2024-11-03 14:47 | XMS_ITS | Clinical Summary ---
Author Organization [employer] Address [address] [facility] [facility] [address] [place] [address] Care Team Providers Care Hotel Receptionist Name Role Phone Unavailable Primary Care Provider [...] patient's age to complete this topic Insurance [facility]
--- OUTSIDE RECORDS SUMMARY | 2024-11-03 14:47 | XMS_ITS | Encounter Summary ---
Author Organization [employer] Address [address] [facility] [address] [place] [address] Care Team Providers Care Sales Donor Recruitment Representative Name Role Phone Unavailable Primary Care Provider Unavailabl e Reason for Visit * Reason Onset Date Comments New Patient Appt 11/22/2022 Encounter Details Date Type Department Care Team (Late st Contact Info) Description 11/22/2022 Telephone [facility] MEDICINE [address] [place], [place] [phone] Festus Sherman MD [address] [place], [place] [phone] New Patient Appt Social History Tobacco Use [...] left voicemail to give a call at [phone]. documented in this encounter Plan of Treatment Not on file documented as of this encounter Visit Diagnoses Not on filedocumented in this encounter
== END 2024-11-02 08:26 | disposition home or self-care (01) ==
LOC: HO.LNP 08:25
PROVIDERS: Visit Provider Nurse Practitioner Family
DX: R10.84 Generalized abdominal pain (principal)
CPT/HCPCS: 83013

== ENCOUNTER 2024-11-12 09:05 | Outpatient (REF) | payer OTHER, SELFPAY ==
--- OUTSIDE RECORDS SUMMARY | 2024-11-12 09:18 | XMS_ITS | Encounter Summary ---
Author Organization [employer] Address [address] [facility] [address] [place] [address] Care Team Providers Care Weld Lay Out Worker Name Role Phone Unavailable Primary Care Provider Unavailabl e Reason for Visit * Reason Onset Date Comments New Patient Appt 11/22/2022 Encounter Details Date Type Department Care Team (Late st Contact Info) Description 11/22/2022 Telephone [facility] MEDICINE [address] [place], [place] [phone] Festus Sherman MD [address] [place], [place] [phone] New Patient Appt Social History Tobacco Use [...] left voicemail to give a call at [phone]. documented in this encounter Plan of Treatment Not on file documented as of this encounter Visit Diagnoses Not on filedocumented in this encounter
--- OUTSIDE RECORDS SUMMARY | 2024-11-12 09:18 | XMS_ITS | Clinical Summary ---
Author Organization [facility] Address [address] [place] [address] Phone Care Team Providers Care Golf Superintendent Name Role Phone Nabeel Pérez Primary Care Provider [phone] Allergies No known active allergies Medications ondansetron ODT (ZOFRAN-ODT) 4 mg disintegrating tablet Let 1 tablet dissolve under the tongue three times daily as needed for nausea or vomiting. 10 tablet 10/31/19 25 025 simethicone (MYLICON) 80 mg chewable tablet Chew 1 tablet (80 mg total) every 6 (six) hours if needed for flatulence for up to 10 days. 30 tablet 10/31/19 25 025 Active Problems No known active problems Encounters Date Type Department Care Team Description 10/30/2024 7:32 AM EDT - 10/30/2024 1:36 PM EDT Emergency [facility] Emergency [address] [place] [address] Abdominal pain, unspecified abdominal location (Primary Dx); Gastroenteritis Discharge Disposition: Home or Self Care from Last 3 Months Social History Tobacco Use Types Packs/Day Years Used Date Smoking Tobacco: Never Assessed Sex and Gender Information Value Date Recorded Sex Assigned at Male 10/30/2024 8:05 AM EDT Legal Sex Male 4:31 PM EST Gender Identity Male 10/30/2024 8:05 AM EDT Sexual Orientation Straight 10/30/2024 8: 05 AM EDT Obstetrics History Last Filed Vital Signs Vital Sign Reading [...] Mass Index 28.66 10/30/2024 6:52 AM EDT Plan of Treatment Health Maintenance Due Date Last Done Comments DTaP,Tdap,and Td Vaccines (1 - Tdap) 2004 Hepatitis B Vaccines (1 of 3 - 19+ 3-dose series) 2004 Cholesterol Screening (Lipid Panel) 05/29/2022 Depression Screening 05/29/2022 HIV Screening 05/29/2022 Hepatitis C Screening 05/29/2022 Social Influencers of Health Screening 05/29/2022 COVID-19 Vaccine ( - 2023-2 5 season) 2024 Influenza Vaccine (Season Ended) 2025 HIB Vaccines Aged Out No longer eligi [...] on patient's age to complete this topic MMR Vaccines Aged Out No longer eligi ble based on patient's age to complete this topic Meningococcal ACWY Vaccine Aged Out N o longer eligible based on patient's age to complete this topic Meningococcal B Vaccine Aged Out No l onger eligible based on patient's age to complete this topic Pneumococcal Vaccine: Pediat rics (0 to 5 Years) and At-Risk Patients (6 to 64 Years) Aged Out No longer eligible b ased on patient's age to complete this topic RSV Immunization Patients Un jaya 20 months Aged Out No longer eligible b ased on patient's age to complete this topic Varicella Vaccines Aged Out No longer eligible based on patient's age to complete this topic Procedures Procedure Name Priority Date/Time Associated Diagnosis Comments US ABDOMEN LIMITED STAT 10/30/2024 12 :[address] ABDOMEN PELVIS W CONTRAST STAT 10/30/2024 9:02 AM EDT ZENDEJAS URINE CULTURE TUBE STAT 10/30/2024 7:25 AM EDT URINALYSIS WITH REFLEX MICROSCOPIC AND CULTURE STAT 10/30/2024 7:25 AM EDT CBC WITH AUTO DIFFERENTIAL STAT 10/30/2024 7:25 AM EDT URINALYSIS WITH REFLEX MICROSCOPIC AND CULTURE STAT 10/30/2024 7:25 AM EDT LIPASE STAT 10/30/2024 7:25 AM EDT COMPREHENSIVE METABOLIC PANEL STAT 10/30/2024 7:25 AM EDT CBC AND DIFFERENTIAL STAT 10/30/2024 7:25 AM EDT from Last 3 Months Results * US Abdomen Limited (10/30/2024 12:38 PM EDT) Anatomical Region Laterality Modality Body Ultrasound 10/30/2024 12:3 7 PM EDT Impressions 10/30/2024 12:41 PM EDT NO CHOLELITHIASIS, BILIARY DUCTAL DILATATION, OR EVIDENCE OF CHOLECYSTITIS. 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 ??ABDOMINAL MRI AGAIN RECOMMENDED TO CONFIRM. -------- FINAL REPORT -------- Dictated By: ROBERTA JULIEN Dictated Date: 10/30/2024 12:37 ET Assigned Physician: ROBERTA JULIEN Reviewed and Electronically Signed By: ROBERTA JULIEN Signed Date: 10/30/2024 12:41 ET Workstation ID: [id number] Transcribed By: Self Edit Transcribed Date: 10/30/2024 [...] cm in length. No ascites. Procedure Note Roberta Julien MD - 10/30/2024 PROCEDURE: US ABDOMEN [...] CONFIRM. -------- FINAL REPORT -------- Dictated By: ROBERTA JULIEN Dictated Date: 10/30/2024 12:37 ET Assigned Physician: ROBERTA JULIEN Reviewed and Electronically Signed By: ROBERTA JULIEN Signed Date: 10/30/2024 12:41 ET Workstation ID: [id number] Transcribed By: Self Edit Transcribed Date: 10/30/2024 12:37 ET us Erikamikayla MONTES US PROCEDURES Final Result * CT Abdomen [...] this report will be provided to the [facility] FIND Program. -------- FINAL REPORT -------- Dictated By: ROBERTA JULIEN Dictated Date: 10/30/2024 09:17 ET Assigned Physician: ROBERTA JULIEN Reviewed and Electronically Signed By: ROBERTA JULIEN Signed Date: 10/30/2024 09:39 ET Workstation ID: [id number] Transcribed By: Self Edit Transcribed Date: 10/30/2024 [...] periumbilical hernia. ??Bones are normal. Procedure Note Roberta Julien MD - 10/30/2024 PROCEDURE: CT ABDOMEN/PELVIS [...] this report will be provided to the [facility] FINDProgram. -------- FINAL REPORT -------- Dictated By: ROBERTA JULIEN Dictated Date: 10/30/2024 09:17 ET Assigned Physician: ROBERTA JULIEN Reviewed and Electronically Signed By: ROBERTA JULIEN Signed Date: 10/30/2024 09:39 ET Workstation ID: [id number] Transcribed By: Self Edit Transcribed Date: 10/30/2024 09:17 ET us Erika FARRELL IMG CT PROCEDURES Final Result * Urinalysis with reflex microscopic and culture (10/30/2024 7:25 AM EDT) [facility] Urine 1.023 1.003 - 1.030 LAB URINALYSIS - AUTOMATED METHOD 10/30/2024 7:52 AM EDT [facility] pH, Urine 5.5 5.0 - 8.0 pH LAB URINALYSIS - AUTOMATED METHOD 10/30/2024 7:52 AM [facility] Leukocytes, Urine Negative Negative LAB URINALYSIS - AUTOMATED METHOD 10/30/2024 7:52 AM [facility] Nitrite, Urine Negative Negative LAB URINALYSIS - AUTOMATED METHOD 10/30/2024 7:52 AM [facility] Protein, Urine Negative <=Trace mg/dL LAB URINALYSIS - AUTOMATED METHOD 10/30/2024 7:52 AM [facility] Glucose, Urine Negative Negative mg/dL LAB URINALYSIS - AUTOMATED METHOD 10/30/2024 7:52 AM [facility] Ketones, Urine Negative Negative mg/dL LAB URINALYSIS - AUTOMATED METHOD 10/30/2024 7:52 AM [facility] Urobilinogen, Urine 0.2 0.2 - 1.0 mg/dL LAB URINALYSIS - AUTOMATED METHOD 10/30/2024 7:52 AM [facility] Bilirubin, Urine Negative Negative LAB URINALYSIS - AUTOMATED METHOD 10/30/2024 7:52 AM [facility] Blood, Urine Negative Negative LAB URINALYSIS - AUTOMATED METHOD 10/30/2024 7:52 AM [facility] Urine Urine specimen obtained by clean catch procedure / Unknown Non-blood Collection / Unknown 10/30/2024 7:25 AM EDT 10/30/2024 7:29 AM EDT us Fabrice Weldon DO LAB URINE ORDERABLES Final Result [facility] [address] [place] [address], [place] [phone] * Zendejas urine culture tube (10/30/2024 7:25 AM EDT) Extra Tube Hold for add-ons. 10/30/2024 9:01 AM EDT [facility] Comment:Auto resulted. Urine Urine specimen obtained by clean catch procedure / Unknown Non-blood Collection / Unknown 10/30/2024 7:25 AM EDT 10/30/2024 7:29 AM EDT us Fabrice Weldon DO LAB URINE ORDERABLES Final Result [facility] [address] [place] [address], [place] [phone] * CBC auto differential (10/30/2024 7:25 AM EDT) WBC 7.2 4.8 - 10.8 K/mcL LAB HEMETOLOGY METHOD 10/30/2024 7:37 AM EDT [facility] RBC 5.10 4.50 - 5.50 M/[facility] Hemoglobin 16.0 13.5 - 17.5 g/dL LAB HEMETOLOGY METHOD [facility]24 [facility] Hematocrit 46.3 42.0 - 54.0 % LAB HEMETOLOGY METHOD 10/30[facility]2024 [facility] MCV 90.3 79.0 - 98.0 FL LAB HEMETOLOGY METHOD 10/30[facility]2024 7[facility] MCH 31.2 27.0 - 32.0 pcg LAB HEMETOLOGY METHOD 10/30[facility]2024 7[facility] MCHC 34.6 32.0 - 37.0 g/dL LAB HEMETOLOGY METHOD 10/30[facility]2024 7[facility] RDW 11.6 11.0 - 15.0 % LAB HEMETOLOGY METHOD 10/30/2024 7:37 AM [facility] Platelets 270 130 - 400 K/mcL LAB HEMETOLOGY METHOD 10/30/2024 7:37 AM [facility] MPV 9.4 7.0 - 11.0 FL LAB HEMETOLOGY METHOD 10/30/2024 7:37 AM [facility] NRBC 0.0 <1.0 % LAB HEMETOLOGY METHOD 10/30/2024 7:37 AM [facility] NRBC Absolute 0.00 <0.10 K/mcL LAB HEMETOLOGY METHOD 10/30/2024 7:37 AM [facility] Neutrophils Relative 63.9 % LAB HEMETOLOGY METHOD 10/30/2024 7:37 AM [facility] Lymphocytes Relative 26.2 % LAB HEMETOLOGY METHOD 10/30/2024 7:37 AM [facility] Monocytes Relative 7.9 % LAB HEMETOLOGY METHOD 10/30/2024 7:37 AM [facility] Eosinophils Relative 1.3 % LAB HEMETOLOGY METHOD 10/30/2024 7:37 AM [facility] Basophils Relative 0.4 % LAB HEMETOLOGY METHOD 10/30/2024 7:37 AM [facility] Immature Granulocytes Relative 0.3 % LAB HEMETOLOGY METHOD 10/30/2024 7:37 AM [facility] Neutrophils Absolute 4.59 1.50 - 7.00 K/mcL LAB HEMETOLOGY METHOD 10/30/2024 7:37 AM [facility] Lymphocytes Absolute 1.88 1.00 - 5.00 K/mcL LAB HEMETOLOGY METHOD 10/30/2024 7:37 AM [facility] Monocytes Absolute 0.57 0.20 - 1.00 K/mcL LAB HEMETOLOGY METHOD 10/30/2024 7:37 AM EDT [facility] Eosinophils Absolute 0.09 0.00 - 0.50 K/[facility] HEMETOLOGY METHOD 10/30/2024 7:37 AM EDT [facility] Basophils Absolute 0.03 0.00 - 0.20 K/[facility] LAB HEMETOLOGY METHOD 10/30/2024 7:37 AM EDT [facility] Immature Granulocytes Absolute 0.02 0.00 - 0.03 K/[facility] HEMETOLOGY METHOD 10/30/2024 7:37 AM EDT [facility] Blood Venous blood specimen / Unknown Venipuncture / Unknown 10/30/2024 7:25 AM EDT 10/30/2024 7:30 AM EDT Fabrice Weldon DO LAB BLOOD ORDERABLES Final Result Performing Organization Address City/[facility]/ZIP Co de Phone Number [facility] [address] [place] [address], [place] [phone] * Lipase (10/30/2024 7:25 AM EDT) Lipase 26 13 - 75 unit/L LAB CHEMISTRY METHOD 10/30/2024 8:06 AM EDT [facility] Blood Venous blood specimen / Unknown Venipuncture / Unknown 10/30/2024 7:25 AM EDT 10/30/2024 7:30 AM EDT Fabrice Weldon DO LAB BLOOD ORDERABLES Final Result [facility] [address] [place] [address], [place] [phone] * Comprehensive metabolic panel (10/30/2024 7:25 AM EDT) Sodium 136 133 - 145 mmol/L LAB CHEMISTRY METHOD 10/30/2024 8:06 AM [facility] Potassium 4.0 3.5 - 5.5 mmol/L LAB CHEMISTRY METHOD 10/30/2024 8:06 AM [facility] Chloride 104 96 - 110 mmol/L LAB CHEMISTRY METHOD 10/30/2024 8:06 AM [facility] CO2 24 21 - 32 mmol/L LAB CHEMISTRY METHOD 10/30/2024 8:06 AM [facility] Anion Gap 8 3 - 11 LAB CHEMISTRY METHOD 10/30/2024 8:06 AM [facility] Glucose 99 70 - 100 mg/dL LAB CHEMISTRY METHOD 10/30/2024 8:06 AM [facility] BUN 12 5 - 25 mg/dL LAB CHEMISTRY METHOD 10/30/2024 8:06 AM [facility] Creatinine 0.81 0.70 - 1.30 mg/dL LAB CHEMISTRY METHOD 10/30/2024 8:06 AM [facility] eGFR 115 >=60 mL/min/1. 73m2 LAB CHEMISTRY METHOD 10/30/2024 8:06 AM [facility] Comment:Calculation based on the??Chronic Kidney Disease Epidemiology Collaboration (CKD-EPI) equation refit??without adjustment for race. BUN/Creatinine Ratio 14.8 LAB CHEMISTRY METHOD 10/30/2024 8:06 AM [facility] Calcium 8.9 8.5 - 10.5 mg/dL LAB CHEMISTRY METHOD 10/30/2024 8:06 AM [facility] AST (SGOT) 14 10 - 42 unit/L LAB CHEMISTRY METHOD 10/30/2024 8:06 AM [facility] ALT (SGPT) 24 10 - 60 unit/L LAB CHEMISTRY METHOD 10/30/2024 8:06 AM [facility] Alkaline Phosphatase 79 42 - 121 unit/L LAB CHEMISTRY METHOD 10/30/2024 8:06 AM EDT [facility] Total Protein 7.2 6.0 - 8.0 g/dL LAB CHEMISTRY METHOD 10/30/2024 8:06 AM EDT [facility] Albumin 3.8 3.2 - 5.0 g/dL LAB CHEMISTRY METHOD 10/30/2024 8:06 AM EDT [facility] Total Bilirubin 0.6 0.0 - 1.4 mg/dL LAB CHEMISTRY METHOD 10/30/2024 8:06 AM EDT [facility] Blood Venous blood specimen / Unknown Venipuncture / Unknown 10/30/2024 7:25 AM EDT 10/30/2024 7:30 AM EDT us Fabrice Weldon DO LAB BLOOD ORDERABLES Final Result [facility] [address] [place] [address], from Last 3 Months Insurance [facility] Care Teams Golf Superintendent Relationship Specialty Start Date End Date Nabeel Pérez [address] [place] [address] PCP - General Family Medicine 10/30/24
--- OUTSIDE RECORDS SUMMARY | 2024-11-12 09:18 | XMS_ITS | Clinical Summary ---
Author Organization [facility] Address [address] [place] [address] Care Team Providers Care Teaching Associate Name Role Phone Unavailable Primary Care Provider [...] patient's age to complete this topic Insurance [facility] , [address] [place] [address]
== END 2024-11-12 09:06 | disposition home or self-care (01) ==
LOC: HO.MRI 09:05
PROVIDERS: Visit Provider Nurse Practitioner Family
DX: Z13.89 Encounter for screening for other disorder (principal)

== ENCOUNTER 2024-12-14 08:19 | Outpatient (AMB) | payer OTHER, SELFPAY ==
[2024-12-14 08:27] VITALS: BP 122/88; PULSE 94; RESP 18; TEMP 37.3; O2SAT 99; BMI 28.5
--- NOTE | 2024-12-14 08:27 | A.OFFPC_ITS ---
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 Accompanied by: Self / Same As Patient Allergies No Known Allergies Allergy (Verified 12/14/24 08:28) Tobacco use date assessed: 12/14/24 Dental Screening Dental Screen Date: 12/14/24 Did you have a dental visit in the last 12 months?: Yes Did you have a dental problem in the last 6 months where you did not have access to dental care?: No Was dental information given to patient?: Patient has dentist HPI Annual Exam HPI Details Dentist: up to date Eye: no -recommend getting this done Snellen: Right: Left: Corrected vision: no STI screening: Colonoscopy: Plans for colonoscopy in near future Pap Smer:n/a PHQ-9: Flu: declines-does not usually takes this COVID: never had any Tdap: declines-he will think about Diet: cutting back foods high in cholesterol Exercise: on and off mri: on friday, already tried 2 times, but was unable to get this done due to anxiety. He was ordered lorazepam still having stomach pain intermittently-instead of having stomach all the time and the pain is much lesser than before. He is experiencing some bloating. UTI-two weeks ago he went to the urgent care for burning with urination. He was treated with ABT. denies symptoms of UTI now. 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 pylori test Mild acid reflux Liver lesion History of fracture of clavicle No known health problems Surgical History Hx of appendectomy Family History Mother Diabetes Thyroid disease Father Colon polyps Son No problems noted. 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 2. Feeling down, depressed, or hopeless: not at all 3. Trouble falling or staying asleep, or sleeping too much: not at all 4. Feeling tired or having little energy: not at all 5. Poor appetite or overeating: not at all 6. Feeling bad about yourself - or that you are a failure or have let yourself or your family down: not at all 7. Trouble concentrating on things, such as reading the newspaper or watching television: not at all 8. Moving or speaking so slowly that other people could have noticed. Or the opposite - being so fidgety or restless that you have been moving around a lot more than usual: not at all 9. Thoughts that you would be better off or of hurting yourself in some way: not at all Depression Screening Interpretation: Negative Depression Screening Done: Yes Source: Developed by Drs. Simone Leyva, Marianna Rodríguez, Matteo Arredondo and colleagues, with an educational jac from [employer]. Thrive Questionnaire Date Thrive assessed: 12/14/24 I am a: Patient What is your living situation today?: I have a steady place to live Within the past 12 months, did the food you bought not last and you didn't have the money to get more?: Never true Within the past 12 months, did you worry whether your food would run out before you got money to buy more?: Never true Do you have trouble paying for medicines?: No Do you have trouble getting transportation to medical appointments?: No Do you have trouble paying your heating and electricity bill?: No Do you have trouble taking care of your child, family member or friend?: No Do you have trouble with day-to-day activities such as bathing, preparing meals, shopping, managing finances, etc.?: No Are you currently unemployed and looking for a job?: No Are you interested in more education?: No Please select the resources that you would like help with: None Currently or been in a relationship where the following occur: I choose not to answer THRIVE Score: 0 AUDIT C Alcohol Use Questionnaire (AUDIT-C) 1. How often do you have a drink containing alcohol?: Never 3. How often do you have six or more drinks on one occasion?: Never Total Score: 0 Score Reviewed/Action Taken: No MANJIT-7 AMB Questionnaire MANJIT-7 Date MANJIT - 7 assessed: 12/14/24 Feeling nervous, anxious, or on edge: 0 = Not at all Not being able to stop or control worryin = Not at all Worrying too much about different things: 0 = Not at all Trouble relaxin = Not at all Being so restless that it is hard to sit still: 0 = Not at all Becoming easily annoyed or irritable: 0 = Not at all Feeling afraid as if something awful might happen: 0 = Not at all Total MANJIT-7 score (0-4 normal; 5-9 mild; 10-14 moderate; 15-21 severe): 0 Source: Developed by Drs. Simone Leyva, Marianna Rodríguez, Matteo Arredondo and colleagues, with an educational jac from [employer]. Review of Systems Const Denies headache(s) Eyes Denies loss of vision ENT Denies vertigo, Denies dizziness, Denies headache(s) and Denies sore throat Card Denies chest pain, Denies leg edema and Denies lightheadedness Resp Denies cough, Denies hemoptysis and Denies wheezing GI Reports abdominal pain (Intermittently), Denies melena, Reports bloating, Denies constipation, Reports heartburn (On and off), Denies diarrhea and Denies vomiting Denies dysuria, Denies urinary frequency and Denies urinary urgency Musc Denies arthralgias, Denies joint swelling, Denies numbness and Denies tingling Neuro Denies Abnormal speech present, Denies behavioral changes, Denies vertigo, Denies dizziness, Denies headache(s), Denies loss of vision, Denies memory loss, Denies numbness and Denies tingling Psych Denies anxiety, Denies behavioral changes, Denies depression, Denies memory loss and Denies panic attacks Favio/Lymph Denies easy bleeding and Denies easy bruising Aller/Immun Denies wheezing Physical exam (Primary Care) Vital Signs: Oxygen Delivery Method Room Air 12/14/24 08:27 Tobacco/Smoking Status: Tobacco use Status Tobacco use date assessed 10/21/24 11/18/24 13:54 Patient Tobacco Use Status Never used Tobacco 11/18/24 13:54 e-Cigarette/Vaping Use Never Used 11/18/24 13:54 Depression Screening Interpretation: Negative Thrive Assessment: Date of Thrive Assessment Date Thrive assessed 10/19/24 11/18/24 13:54 Currently or been in a relationship where the following occur: I choose not to answer Const General: healthy appearing, no acute distress, alert and awake Nutritional Appearance: well nourished Orientation/consciousness: oriented to person, oriented to place and oriented to time HENMT Ears: TM's normal bilaterally General nose exam: Normal nasal mucous membranes and turbinates present Eyes Conjunctivae: conjunctivae normal Sclerae: sclerae normal Pupils: Equal, round and reactive pupils present Neck Neck: Yes no lymphadenopathy and Yes no JVD Thyroid: Thyroid normal Carotids: no bruits Resp Effort & Inspection: normal respiratory effort and not tachypneic Auscultation: no crackles, no rales, no rhonchi and no wheezes Cardio Rate: regular rate Rhythm: regular rhythm Heart sounds: no murmurs and normal S1 and S2 GI Palpation (GI): Soft to palpation, Tenderness to palpation present (GI) in the epigastrum, no hepatomegaly and no splenomegaly Auscultation: normal bowel sounds General: Yes no CVA tenderness and Yes deferred Back/Spine/Pelvis Back: no CVA tenderness Skin General skin exam: no rashes or lesions noted and dry skin Neuro General: oriented to person, oriented to place and oriented to time Cranial nerves: Yes CN's II-XII intact bilaterally and Yes Equal, round and reactive pupils present Speech: No Abnormal speech present Gait exam (Neuro): Normal gait present Motor exam (neuro): 5/5 motor strength present throughout and no tremor noted Deep tendon reflexes (DTR's): Right triceps reflex intensity grade: 2+, Left triceps reflex intensity grade: 2+, Rt Biceps (C5, C6): 2+, Left biceps reflex intensity grade: 2+, Right brachioradialis reflex intensity grade: 2+, Left brachioradialis reflex intensity grade: 2+, Right patellar reflex intensity grade: 2+ and Left patellar reflex intensity grade: 2+ Extrem Right upper extremity: full ROM Left upper extremity: full ROM Right lower extremity: full ROM; no edema Left lower extremity: full ROM; no edema Psych Mental Status: mental status grossly normal Speech and movement: Normal speech and movement present Affect: normal affect Attitude: cooperative Thought process: Normal thought process present Results Reviewed Results Reviewed: Laboratory Tests 10/23/24 10/23/24 09:35 09:40 WBC 7.3 RBC 5.25 Hgb 16.3 Hct 46.9 MCV 89.3 MCH 31.0 MCHC 34.8 RDW 11.5 Plt Count 279 Sodium 137 Potassium 3.9 Chloride 106 Carbon Dioxide 25 Anion Gap 10 L BUN 12 Creatinine 0.73 Estimated GFR > 60 Fasting Glucose 91 Calcium 9.1 Magnesium 2.1 Total Bilirubin 0.5 AST 20 ALT 24 Alkaline Phosphatase 76 C-React Prot High Sens 1.7 Total Protein 7.2 Albumin 4.2 Triglycerides 109 Cholesterol 191 LDL Cholesterol, Calc 132 H HDL Cholesterol 38 L 25-OH Vitamin D Total 33.1 TSH 0.56 Urine Color Yellow Urine Appearance Clear Urine pH 6.5 Ur Specific Sheldon 1.025 Urine Protein Negative Urine Glucose (UA) Negative Urine Ketones Negative Urine Blood Negative Urine Nitrite Negative Ur Leukocyte Esterase Negative Coding Level of Care Code Est Pt Prev Care 18-39y([id number]) Diagnoses Annual physical exam Z00.00 Epigastric pain R10.13 Abdominal location: epigastric Fecal smearing R15.1 Fecal incontinence type: fecal smearing Liver lesion K76.9 Mild acid reflux K21.9 Pure hypercholesterolemia E78.00 Time Spent (min) 36 Assessment & Plan Assessment & Plan (1) Annual physical exam: Code(s): Z00.00 - Encounter for general adult medical examination without abnormal findings Category: Medical Plan: Preventative guidelines and recent labs reviewed with patient. Patient is up-to-date on dentist dentist. He has never had an eye exam before. Refuses most vaccination. 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 (2) Abdominal pain: Code(s): R10.9 - Unspecified abdominal pain Category: Medical Qualifiers: Abdominal location: epigastric Qualified Code(s): R10.13 - Epigastric pain Plan: Intermittent abdominal pain Before this was constant and more severe He was found to be positive H pylori and he is still undergoing treatments complaining of bloating as well, that he thinks might be causing some of his discomfort and he was ordered simethicone 80 mg b.i.d.-q.i.d. P.r.n. (3) Stool incontinence: Code(s): R15.9 - Full incontinence of feces Category: Medical Qualifiers: Fecal incontinence type: fecal smearing Qualified Code(s): R15.1 - Fecal smearing Plan: stable-has not happened in a while will continue to monitor (4) Liver lesion: Code(s): K76.9 - Liver disease, unspecified Category: Medical Plan: Multiple lesions suspect to be hemangiomas noted on CT scan MRI pending on Friday Attempt to complete MRI twice so far and was unable to due to anxiety Was ordered lorazepam 1 mg sublingual once (5) Mild acid reflux: Code(s): K21.9 - Gastro-esophageal reflux disease without esophagitis Category: Medical Plan: Do not eat meals or drink carbonated beverages within 3 hr of bedtime Decrease the amount of fried, fatty, and spicy foods to decrease gastric acid production Raise the head of the bed using 4 to 6-inch blocks, especially if nocturnal symptoms are present Lose weight if indicated; avoid tight-fitting clothing, especially around the waist Avoid foods that relax the Lower esophageal sphincter (chocolate, peppermint, high-fat foods etc.,) Continue omeprazole 20 mg b.i.d. OTC (6) Pure hypercholesterolemia: Code(s): E78.00 - Pure hypercholesterolemia, unspecified Category: Medical Plan: tri 191, t-chol 132, hld 38 Discussed lifestyle modifications including dietary changes and physical activity will recheck lipid panel in 3 months Orders: Orders Lipid Panel 4 Months E78.00 - Pure hypercholesterolemia, unspecified, K76.9 - Liver disease, unspecified Comprehensive [place]. Panel Fast 4 Months E78.00 - Pure hypercholesterolemia, unspecified, K76.9 - Liver disease, unspecified Medications: New simethicone (Gas Relief (simethicone)) 80 mg PO BID-QID PRN 60 tabs 3RF abdominal distention
--- OUTSIDE RECORDS SUMMARY | 2024-12-14 08:30 | XMS_ITS | Clinical Summary ---
Author Organization [employer] Address [address] [place] [address] Care Team Providers Care Information Technology Associate Name Role Phone Unavailable Primary Care [...] 1985 Lipid Panel 1985 SDOH Screening 1985 Disability Screening 1985 Alcohol/Substance Use Screening 1997 Family Planning (PISQ) 2000 Hepatitis C Screening 2003 DTaP/Tdap/Td Vaccines (1 - Tdap) 2004 Hepatitis B Vaccines (1 of 3 - 19+ 3-dose series) 2004 Tobacco Screening 08/14/2023 08/14/2022 COVID-19 Vaccine (1 - 2023-2 5 season) 2024 Influenza Vaccine (Season Ended) 2025 Zoster Vaccines (1 of 2) 2035 RSV [...] Years) and At-Risk Patients (6 to 49) Years Aged Out No longer eligi ble based on patient's age to complete this topic RSV under 20 months Aged Out No longe r eligible based on patient's age to complete this topic Rotavirus Vaccines Aged Out No longer eligible based on patient's age to complete this topic Insurance [facility] [address] [place] [address]
== END 2024-12-14 09:14 | disposition home or self-care (01) ==
LOC: HO.HMCH 08:20
DX: Z00.00 Encounter for general adult medical examination without abnormal findings (principal); R10.13 Epigastric pain; R15.1 Fecal smearing; K76.9 Liver disease, unspecified; K21.9 Gastro-esophageal reflux disease without esophagitis; E78.00 Pure hypercholesterolemia, unspecified

== ENCOUNTER 2024-12-22 10:07 | Outpatient (AMB) | payer OTHER, SELFPAY ==
--- NOTE | 2024-12-22 10:19 | MHC.OFFVIS ---
Vital Signs 12/22/24 10:26 Height 5 ft 7 in Weight 183 lb BMI 28.7 BP 105/66 Blood Pressure Location Lt brachial Position Sitting Pulse 86 Pulse Oximetry (%) 98 Oxygen Delivery Method Room Air Intake Visit Reasons: US follow up r/s 11/19/24 Intake Note: Patient follow up for Abdominal pain, no lab/fecal also MRI results. Patient cc: abdominal pain, diarrhea in the morning, much better afer antibiotics, denies any other GI issues. Education Department Chair Required: No Education Department Chair Name: [id number] Accompanied by: Self / Same As Patient Allergies No Known Allergies Allergy (Verified 12/22/24 10:19) Medication List - Last Reconciled 12/22/24 by Nathalia Juárez CNP cephalexin 500 mg PO BID Lactobacillus acidophilus 10,000 mmu cells PO BID simethicone (Gas Relief (simethicone)) 80 mg PO BID-QID PRN sucralfate 1 g PO TID HPI HPI US follow up r/s 11/19/24: Details: Patient is a 39-year-old male who denies any PMH. Follow up ab pain and MRI results. Abram underwent MRI for further evaluation of lesions noted on recent abdominal CT and ultrasound suspected of multiple hepatic hemangioma. MRI was complete 5 days ago favoring small hemangiomas with recommendations repeat MRI in 6 months. He was also started on H pylori quadruple therapy. Today states he completed the H. plyori treatment suspects his last dose was on/around December 10. Abram reports intermittent abdominal pain, especially after consuming foods such as mayonnaise and fried food. The pain is characterized as a burning sensation that leads to the need to use the bathroom. The pain is diet-induced. The remains on cephalexin treatment for a UTI prescribed by outside provider. He is unsure of remaining doses. He currently denies any pain. Patient denies: fever/chills, vomiting, appetite changes, regurgitation, dysphasia, unintentional wt loss or melena/hematochezia. [facility] Medical History (Updated 12/22/24 @ 11:16 by Nathalia Juárez CNP) Multiple hemangiomas Positive H. pylori test Mild acid reflux Liver lesion History of fracture of clavicle No known health problems Surgical History Hx of appendectomy Family History Mother Diabetes Thyroid disease Father Colon polyps Son No problems noted. 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 Cognitive needs: No Hearing needs: No Vision needs: No Review of Systems Const Reports as per HPI ENT Reports as per HPI Card Reports as per HPI Resp Reports as per HPI GI Reports as per HPI Reports as per HPI Physical Exam Vital Signs: Last Vital Signs Pulse 86 12/22/24 10:26 BP 105/66 12/22/24 10:26 Pulse Ox 98 12/22/24 10:26 Oxygen Delivery Method Room Air 12/22/24 10:26 BMI result Body Mass Index 28.7 Const General: healthy appearing, no acute distress and well developed Nutritional Appearance: well nourished Orientation/consciousness: patient oriented x3 HEENT Head: Yes normal to inspection, Yes normocephalic and Yes atraumatic Face and sinus: Yes normal facial exam Eyes General: appearance normal, both eyes and all related structures Neck Neck: Yes normal visual inspection Resp Effort & Inspection: normal respiratory effort, able to speak in complete sentences, no tracheal deviation and symmetric chest movement Auscultation: clear to auscultation bilaterally Cardio Jugular venous distension: no JVD Rate: regular rate Rhythm: regular rhythm Heart sounds: S1 normal heart sound present, S2 normal heart sound present, no gallops and no murmurs GI Inspection: Yes normal to inspection and No distended Palpation (GI): Soft to palpation, not firm, nontender and No hepatosplenomegaly present Auscultation: normal bowel sounds Neuro General: patient oriented x3 Gait exam (Neuro): Normal gait present Psych Appearance: grossly normal Mental Status: mental status grossly normal Speech and movement: Normal speech and movement present Affect: normal affect Attitude: cooperative Thought process: Normal thought process present Thought content: Normal thought content present Insight: Good insight present (Psych) Judgement: Good judgement present (Psych) Assessment & Plan Assessment & Plan (1) Positive H. pylori test: Code(s): A04.8 - Other specified bacterial intestinal infections Category: Medical Plan: Successful completion of quadruple therapy. Additional Tests: Stool sample after January 07 to rule out inflammatory bowel disease and to check H. Pylori eradication via a stool test. May consider endoscopy if symptoms persist and findings unyielding. Medications: Sucralfate 1g oral TID (to replace omeprazole) on an empty stomach and maintain a gap for other oral medications as directed. Probiotic, 1 tablet oral BID for 30 days Lifestyle Modifications: Avoid foods that trigger symptoms (e.g., mayonnaise, fried food). (2) Multiple hemangiomas: Code(s): D100 - Hemangioma unspecified site Category: Medical Plan: Reviewed MRI with findings suggestive of small hemangiomas (see scanned report). Education on benign findings. Normal LFTs 09/2024. He is agreeable to repeat imaging in 6 months ( pre-medicated) or sooner if clinically indicated. Plan Follow-up in 6 weeks or sooner as needed Time: I spent a total of 50 minutes on the date of encounter which includes: Preparing to see the patient (reviewed previous documentation, test results and medical history) Performing a medically appropriate exam and/or evaluation Ordering medications, tests, and procedures Documenting clinical information in the health record Orders: Orders MR abdomen wo/w con 6 Months D1 - Hemangioma unspecified site H pylori Ag Stool 12/22/24 A04.8 - Other specified bacterial intestinal infections Medications: New Lactobacillus acidophilus Take once tablet twice daily until complete 10,000 mmu cells PO BID 30 caps 0RF Lactobacillus acidophilus Take once tablet twice daily until complete 10,000 mmu cells PO BID 60 caps 0RF sucralfate Take on tablet three times daily as needed. Take an empty stomach. Avoid antacids within 30 minutes. 1 g PO TID 90 tabs 1RF Discontinued lorazepam Take 1 mg once 30 to 90 minutes before procedure; can repeat X 1 after 30 to 60 minutes if incomplete response Discontinued Reason: No Longer Medically Relevant 1 mg sublingual ONCE 2 tabs 0RF Coding Level of Care Code Established Pt Est Pt Level 5 (76647) Patient Type Established Diagnoses Positive H. pylori test A04.8 Multiple hemangiomas D18
[2024-12-22 10:26] VITALS: BP 105/66; PULSE 86; O2SAT 98; BMI 28.7
--- OUTSIDE RECORDS SUMMARY | 2024-12-22 11:39 | XMS_ITS | Clinical Summary ---
Author Organization [facility] Address [address] [place] [address] Phone Care Team Providers Care Skill Labor Name Role Phone Nabeel Pérez Alexa LIZAMA Primary Care Provider Allergies No known active allergies Medications No known medications Active Problems No known active problems Encounters Date Type Department Care Team Description 10/30/2024 7:32 AM EDT - 10/30/2024 1:[address] [facility] Emergency [address] [place] [address] Abdominal pain, unspecified abdominal location [...] 69 10/30/2024 11:53 AM EDT Temperature 36.7 C (98 F) 10/30/2024 11:59 AM EDT Respiratory Rate 17 [...] Signed Date: 10/30/2024 12:41 ET Workstation ID: [id number] Transcribed By: Self Edit Transcribed Date: 10/30/2024 [...] to 3.3 cm in the left liver. Normal directional flow within the main portal vein. Gallbladder is normal. No gallbladder wall thickening or pericholecystic fluid. Sonographic Jones sign is negative. No biliary [...] Signed Date: 10/30/2024 12:41 ET Workstation ID: [id number] Transcribed By: Self Edit Transcribed Date: 10/30/2024 12:37 ET us Erika MONTES US PROCEDURES Final Result * CT [...] this report will be provided to the [facility] FIND Program. -------- FINAL REPORT -------- Dictated By: ROBERTA JULIEN Dictated Date: 10/30/2024 09:17 ET Assigned Physician: ROBERTA JULIEN Reviewed and Electronically Signed By: ROBERTA JULIEN Signed Date: 10/30/2024 09:39 ET Workstation ID: [id number] Transcribed By: Self Edit Transcribed Date: 10/30/2024 [...] liver with foci of peripheral nodular enhancement. For example within the right posterior inferior liver measuring 14 mm and within the left dome measuring 23 mm. Liver lesions are difficult to compare to the prior noncontrast CT due to differences in technique. Gallbladder and biliary tree are normal. SPLEEN: No splenomegaly. PANCREAS: No focal mass or ductal dilatation. ADRENALS: No nodules. KIDNEYS/URETERS: No hydronephrosis, stones, or solid mass. PELVIC ORGANS/BLADDER: Unremarkable. PERITONEUM / RETROPERITONEUM: No ascites or free air. No retroperitoneal lymphadenopathy. VESSELS: Portal vein is patent. Abdominal aorta is normal in size. GI TRACT: No bowel obstruction or wall thickening. Normal appendix. BONES AND SOFT TISSUES: Small fat-containing periumbilical hernia. Bones are normal. Procedure Note Roberta Julien MD [...] this report will be provided to the [facility] FINDProgram. -------- FINAL REPORT -------- Dictated By: ROBERTA JULIEN Dictated Date: 10/30/2024 09:17 ET Assigned Physician: ROBERTA JULIEN Reviewed and Electronically Signed By: ROBERTA JULIEN Signed Date: 10/30/2024 09:39 ET Workstation ID: [id number] Transcribed By: Self Edit Transcribed Date: 10/30/2024 09:17 ET us Erika FARRELL IMG CT PROCEDURES Final Result * Urinalysis with reflex microscopic and culture (10/30/2024 7:25 AM EDT) Specific [place] Urine 1.023 1.003 - 1.030 LAB URINALYSIS - AUTOMATED METHOD 10/30/2024 7:[address] [facility] pH, Urine 5.5 5.0 - 8.0 pH LAB URINALYSIS - AUTOMATED METHOD 10/30/2024 7:[address] [facility] Leukocytes, Urine Negative Negative LAB URINALYSIS - AUTOMATED METHOD 10/30/2024 7:[address] [facility] Nitrite, Urine Negative Negative LAB URINALYSIS - AUTOMATED METHOD 10/30/2024 7:[address] [facility] Protein, Urine Negative <=Trace mg/dL LAB URINALYSIS - AUTOMATED METHOD 10/30/2024 7:[address] [facility] Glucose, Urine Negative Negative mg/dL LAB URINALYSIS - AUTOMATED METHOD 10/30/2024 7:52 AM EDT [facility] Ketones, Urine Negative Negative mg/dL LAB URINALYSIS - AUTOMATED METHOD 10/30/2024 7:52 AM EDT [facility] Urobilinogen, Urine 0.2 0.2 - 1.0 mg/dL LAB URINALYSIS - AUTOMATED METHOD 10/30/2024 7:52 AM EDT [facility] Bilirubin, Urine Negative Negative LAB URINALYSIS - AUTOMATED METHOD 10/30/2024 7:52 AM EDT [facility] Blood, Urine Negative Negative LAB URINALYSIS - AUTOMATED METHOD 10/30/2024 7:52 AM EDT [facility] Urine Urine specimen obtained by clean catch procedure / Unknown Non-blood Collection / Unknown 10/30/2024 7:25 AM EDT 10/30/2024 7:29 AM EDT Fabrice Weldon DO LAB URINE ORDERABLES Final Result [facility] [address] [place] [address], [place] [phone] * Zendejas urine culture tube (10/30/2024 7:25 AM EDT) Extra Tube Hold for add-ons. 10/30/2024 9:01 AM EDT [facility] Comment:Auto resulted. Urine Urine specimen obtained by clean catch procedure / Unknown Non-blood Collection / Unknown 10/30/2024 7:25 AM EDT 10/30/2024 7:29 AM EDT us Fabrice Weldon DO LAB URINE ORDERABLES Final Result Performing Organization Address [facility]/ZIP Co de Phone Number [facility] [address] [place] [address], [place] [phone] * CBC auto differential (10/30/2024 7:25 AM EDT) [facility] WBC 7.2 4.8 - 10.8 K/mcL LAB HEM[facility]OLOGY [facility] RBC 5.10 4.50 - 5.50 M/mcL LAB HEMETOLOGY METHOD [facility] Hemoglobin 16.0 13.5 - 17.5 g/dL LAB HEMETOLOGY METHOD 10/30/2024 7:[address] [facility] Hematocrit 46.3 42.0 - 54.0 % LAB HEMETOLOGY METHOD 10/30/2024 7:[address] [facility] MCV 90.3 79.0 - 98.0 FL LAB HEMETOLOGY METHOD 10/30/2024 7:[address] [facility] MCH 31.2 27.0 - 32.0 pcg LAB HEMETOLOGY METHOD 10/30/2024 7:[address] [facility] MCHC 34.6 32.0 - 37.0 g/dL LAB HEMETOLOGY METHOD 10/30/2024 7:[address] [facility] RDW 11.6 11.0 - 15.0 % LAB HEMETOLOGY METHOD 10/30/2024 7:[address] [facility] Platelets 270 130 - 400 K/mcL LAB HEMETOLOGY METHOD 10/30/2024 7:[address] [facility] MPV 9.4 7.0 - 11.0 FL LAB HEMETOLOGY METHOD 10/30/2024 7:[address] [facility] NRBC 0.0 <1.0 % LAB HEMETOLOGY METHOD [facility] NRBC Absolute 0.00 <0.10 K/mcL LAB HEMETOLOGY METHOD 10/30/2024 7:[address] [facility] Neutrophils Relative 63.9 % LAB HEMETOLOGY METHOD 10/30/2024 7:[address] [facility] Lymphocytes Relative 26.2 % LAB HEMETOLOGY METHOD 10/30/2024 7:[address] [facility] Monocytes Relative 7.9 % LAB HEMETOLOGY METHOD 10/30/2024 7:[address] [facility] Eosinophils Relative 1.3 % LAB HEMETOLOGY METHOD 10/30/2024 7:[address] [facility] Basophils Relative 0.4 % LAB HEMETOLOGY METHOD 10/30/2024 7:[address] [facility] Immature Granulocytes Relative 0.3 % LAB HEMETOLOGY METHOD 10/30/2024 7:[address] [facility] Neutrophils Absolute 4.59 1.50 - 7.00 K/mcL LAB HEMETOLOGY METHOD 10/30/2024 7:[address] [facility] Lymphocytes Absolute 1.88 1.00 - 5.00 K/mcL LAB HEMETOLOGY METHOD 10/30/2024 7:[address] [facility] Monocytes Absolute 0.57 0.20 - 1.00 K/mcL LAB HEMETOLOGY METHOD 10/30/2024 7:[address] [facility] Eosinophils Absolute 0.09 0.00 - 0.50 K/mcL LAB HEMETOLOGY METHOD 10/30/2024 7:[address] [facility] Basophils Absolute 0.03 0.00 - 0.20 K/mcL LAB HEMETOLOGY METHOD 10/30/2024 7:[address] [facility] Immature Granulocytes Absolute 0.02 0.00 - 0.03 K/mcL LAB HEMETOLOGY METHOD 10/30/2024 7:37 AM EDT [facility] Blood Venous blood specimen / Unknown Venipuncture / Unknown 10/30/2024 7:25 AM EDT 10/30/2024 7:30 AM EDT Fabrice Weldon DO LAB BLOOD ORDERABLES Final Result Performing Organization Address City/[facility]/ZIP Co de Phone Number [facility] [address] [place] [address], [place] [phone] * Lipase (10/30/2024 7:25 AM EDT) Lipase 26 13 - 75 unit/L LAB CHEMISTRY METHOD 10/30/2024 8:[address] [facility] Blood Venous blood specimen / Unknown Venipuncture / Unknown 10/30/2024 7:25 AM EDT 10/30/2024 7:30 AM EDT Fabrice Weldon DO LAB BLOOD ORDERABLES Final Result Performing Organization Address City/[facility]/ZIP Co de Phone Number [facility] [address] [place] [address], [place] [phone] * Comprehensive metabolic panel (10/30/2024 7:25 AM EDT) Sodium 136 133 - 145 mmol/L LAB CHEMISTRY METHOD 10/30/2024 8:[address] [facility] Potassium 4.0 3.5 - 5.5 mmol/L LAB CHEMISTRY METHOD 10/30/2024 8:[address] [facility] Chloride 104 96 - 110 mmol/L LAB CHEMISTRY METHOD 10/30/2024 8:[address] [facility] CO2 24 21 - 32 mmol/L LAB CHEMISTRY METHOD 10/30/2024 8:[address] [facility] Anion Gap 8 3 - 11 LAB CHEMISTRY METHOD 10/30/2024 8:[address] [facility] Glucose 99 70 - 100 mg/dL LAB CHEMISTRY METHOD 10/30/2024 8:[address] [facility] BUN 12 5 - 25 mg/dL LAB CHEMISTRY METHOD 10/30/2024 8:[address] [facility] Creatinine 0.81 0.70 - 1.30 mg/dL LAB CHEMISTRY METHOD 10/30/2024 8:[address] [facility] eGFR 115 >=60 mL/min/1. 73m2 LAB CHEMISTRY METHOD 10/30/2024 8:[address] [facility] Comment:Calculation based on the Chronic Kidney Disease Epidemiology Collaboration (CKD-EPI) equation refit without adjustment for race. BUN/Creatinine Ratio 14.8 LAB CHEMISTRY METHOD 10/30/2024 8:[address] [facility] Calcium 8.9 8.5 - 10.5 mg/dL LAB CHEMISTRY METHOD 10/30/2024 8:[address] [facility] AST (SGOT) 14 10 - 42 unit/L LAB CHEMISTRY METHOD 10/30/2024 8:[address] [facility] ALT (SGPT) 24 10 - 60 unit/L LAB CHEMISTRY METHOD 10/30/2024 8:[address] [facility] Alkaline Phosphatase 79 42 - 121 unit/L LAB CHEMISTRY METHOD 10/30/2024 8:[address] [facility] Total Protein 7.2 6.0 - 8.0 g/dL LAB CHEMISTRY METHOD 10/30/2024 8:[address] [facility] Albumin 3.8 3.2 - 5.0 g/dL LAB CHEMISTRY METHOD 10/30/2024 8:[address] [facility] Total Bilirubin 0.6 0.0 - 1.4 mg/dL LAB CHEMISTRY METHOD 10/30/2024 8:[address] [facility] Blood Venous blood specimen / Unknown Venipuncture / Unknown 10/30/2024 7:25 AM EDT 10/30/2024 7:30 AM EDT us Fabrice Weldon DO LAB BLOOD ORDERABLES Final Result [facility] [address] [place] [address], from Last 3 Months Insurance [facility] [address] [place] [address] Care Teams Skill Labor Relationship Specialty Start Date End Date Nabeel Pérez FNP PCP - General Family Medicine 10/30/24
== END 2024-12-22 11:15 | disposition home or self-care (01) ==
LOC: HO.HGI 10:08
PROVIDERS: Visit Provider Nurse Practitioner Family
DX: A04.8 Other specified bacterial intestinal infections (principal); D18.00 Hemangioma unspecified site
CPT/HCPCS: 99215

== ENCOUNTER 2024-12-22 10:07 | Outpatient (REF) | payer OTHER, SELFPAY ==
[2024-12-22 12:27] LABS: C Reactive Protein 0.26 mg/dL (< or = 0.50)
[2024-12-23 22:39] LABS: Transglutaminase IgA <1.0 U/mL
== END 2024-12-22 10:08 | disposition home or self-care (01) ==
LOC: HO.LAB 10:07
PROVIDERS: Visit Provider Nurse Practitioner Family
DX: R10.84 Generalized abdominal pain (principal); A04.8 Other specified bacterial intestinal infections; D18.00 Hemangioma unspecified site
CPT/HCPCS: 36415; 86140; 86364

== ENCOUNTER 2025-02-11 09:45 | Outpatient (REF) | payer OTHER, SELFPAY ==
--- OUTSIDE RECORDS SUMMARY | 2025-02-11 09:56 | XMS_ITS | Clinical Summary ---
Author Organization [facility] Address [address] [place] [address] Phone Care Team Providers Care Side Trimmer Name Role Phone Nabeel Pérez Alexa LIZAMA Primary Care Provider Allergies No known active allergies Medications No known medications Active Problems No known active problems Social [...] series) 2004 Cholesterol Screening (Lipid Panel) 05/29/2022 HIV Screening 05/29/2022 Hepatitis C Screening 05/29/2022 Social Influencers of Health Screening 05/29/2022 COVID-19 Vaccine (1 - 2023-2 5 season) 2024 Depression Screening 06/30/2024 Influenza Vaccine (#1) 2025 HIB Vaccines Aged Out No longer [...] 5 Years) and At-Risk Patients (6 to 49 Years) Aged Out No longer eligible b ased on patient's age to complete this topic RSV Immunization Patients Un jaya 20 months Aged Out No longer eligible b ased on patient's age to complete this topic Varicella Vaccines Aged Out No longer eligible based on patient's age to complete this topic Insurance [facility] Care Teams Side Trimmer Relationship Specialty Start Date End Date Nabeel Pérez FNP PCP - General Family Medicine 10/30/24
[2025-02-17 21:03] LABS: Calprotectin, Fecal 25 mcg/g
== END 2025-02-11 09:46 | disposition home or self-care (01) ==
LOC: HO.LNP 09:45
PROVIDERS: Visit Provider Nurse Practitioner Family
DX: A04.8 Other specified bacterial intestinal infections (principal); R10.84 Generalized abdominal pain
CPT/HCPCS: 83993; 87338

== ENCOUNTER 2025-02-17 07:58 | Outpatient (REF) | payer OTHER, SELFPAY ==
--- NOTE | ~2025-02-17 | XR_ITS ---
EXAMINATION: XR ABDOMEN COMPLETE CLINICAL INDICATION: R63.4 - Abnormal weight loss COMPARISON: None available. TECHNIQUE: 2 views of the abdomen. FINDINGS: Gas throughout intestine. Abundant stool. No air-fluid levels. Liver shadow projects below the ribs cage. S-shaped curvature of the lumbar spine which could be positional. No gross lytic or blastic lesions. No calcifications. XR/XR abdomen min 2V IMPRESSION: Hepatomegaly. Probable scoliosis, lumbar spine. No intestinal obstruction pattern. Electronically signed by: Roland Luna MD 02/17/2025 09:57 AM EDT
--- NOTE | ~2025-02-17 | XR_ITS ---
EXAMINATION: XR CHEST CLINICAL INFORMATION: R63.4 - Abnormal weight loss COMPARISON: September 03, 2021 TECHNIQUE: 2 views of the chest were obtained. FINDINGS: No consolidation, pleural fissure pneumothorax. Metallic plate in the right clavicle, unchanged. Cardiomediastinal silhouette size is normal. Mild multilevel thoracic spondylosis and mild scoliosis of the thoracic spine. XR/XR chest 2V IMPRESSION: No acute airspace disease. Stable chest. Status post open reduction internal fixation right clavicle fracture. Electronically signed by: Roland Luna MD 02/17/2025 09:52 AM EDT
--- NOTE | ~2025-02-17 | XR_ITS ---
EXAMINATION: XR SACROILIAC JOINTS CLINICAL INFORMATION: R10.9 - Unspecified abdominal pain COMPARISON: None available. TECHNIQUE: AP and oblique views of the sacroiliac joints FINDINGS: No acute cortical disruption. No lytic or blastic lesions. XR/XR sacroiliac joint 1-2V IMPRESSION: Normal sacroiliac joints. Electronically signed by: Roland Luna MD 02/17/2025 09:54 AM EDT
--- NOTE | ~2025-02-17 | XR_ITS ---
EXAMINATION: XR THORACIC SPINE CLINICAL INFORMATION: M54.9 - Dorsalgia, unspecified COMPARISON: Correlated to chest x-ray dated September 03, 2021 TECHNIQUE: AP lateral and swimmer's projection. FINDINGS: Mild a shaped curvature of the thoracic spine. Mild multilevel marginal osteophyte formation and endplate sclerosis decreased intervertebral disc height throughout the axial skeletal. Focal calcification in the anterior intervertebral disc C5-6. No lytic or blastic lesions. Metallic plate right clavicle no fully included in the [id number]. XR/XR thoracic spine 2V IMPRESSION: Mild scoliosis and mild to moderate multilevel spondylosis. Electronically signed by: Roland Luna MD 02/17/2025 09:53 AM EDT
[2025-02-17 10:11] LABS: Hemoglobin A1C 151.7142 umol/L; Total Hemoglobin (HGBA1C) 4382.3760 umol/L
[2025-02-17 11:29] LABS: HBS Num1 116.99 mIU/mL (0-7.99); HBc Num1 0.09 S/CO (0.00-0.79); HBsAGNum1 0.80 S/CO (0.00-0.99); HIV Num 1 0.05 S/CO (0.00-0.99); Hepatitis A Antibody IgM 0.25 Index (0-0.79); Hepatitis B Surface Antigen Negative (Negative); ~HepC Num1 0.09 S/CO (0.00-0.79); ~Hepatitis A Antibody IgM Nonreactive (Nonreactive); ~Hepatitis B Surface Antibody REACTIVE (Nonreactive); ~Hepatitis C Antibody Nonreactive (Nonreactive)
[2025-02-18 07:47] LABS: ~Hepatitis A Antibody IgG 0.44 S/CO (0.00-0.99)
== END 2025-02-17 07:59 | disposition home or self-care (01) ==
LOC: HO.LAB 07:58
PROVIDERS: Visit Provider Nurse Practitioner Family
DX: A04.8 Other specified bacterial intestinal infections (principal); R10.13 Epigastric pain; R63.4 Abnormal weight loss; G89.29 Other chronic pain; M54.6 Pain in thoracic spine; M25.50 Pain in unspecified joint; Z13.1 Encounter for screening for diabetes mellitus; Z11.4 Encounter for screening for human immunodeficiency virus [HIV]; Z11.59 Encounter for screening for other viral diseases
CPT/HCPCS: 36415; 71046; 72070; 72200; 74019; 83036; 86704; 86706; 86708; 86709; 86803; 87340; 87389

== ENCOUNTER 2025-02-17 07:58 | Outpatient (AMB) | payer OTHER, SELFPAY ==
--- OUTSIDE RECORDS SUMMARY | 2025-02-17 08:03 | XMS_ITS | Clinical Summary ---
Author Organization [employer] Address [address] [place] [address] Care Team Providers Care Mess Attendant Name Role Phone Unavailable Primary Care Provider [...] 79 10/23/2023 8:49 AM EDT Temperature 36.8 C (98.2 F) 10/23/2023 8:49 AM EDT Respiratory Rate 20 10/23/2023 8:49 AM EDT [...] Use Screening 1997 Family Planning (PISQ) 2000 HPV Vaccines (1 - 3-dose series) 2000 Hepatitis C Screening 2003 DTaP/Tdap/Td Vaccines (1 - Tdap) 2004 Hepatitis B Vaccines (1 of 3 - 19+ 3-dose series) 2004 Tobacco Screening 08/14/2023 08/14/2022 COVID-19 Vaccine (1 - 2023-2 5 season) 2024 Influenza Vaccine (#1) 2025 Zoster Vaccines (1 of 2) 2035 [...] age to complete this topic Insurance [facility] , [address] [place] [address]
--- OUTSIDE RECORDS SUMMARY | 2025-02-17 08:03 | XMS_ITS | Clinical Summary ---
Author Organization [facility] Address [address] [place] [address] Phone Care Team Providers Care Tipple Worker Name Role Phone Nabeel Pérez Alexa LIZAMA [...] age to complete this topic Insurance [facility] Care Teams Tipple Worker Relationship Specialty Start Date End Date Nabeel Pérez FNP PCP - General Family Medicine 10/30/24
--- NOTE | 2025-02-17 08:10 | A.OFFVIS_ITS ---
Vital Signs 02/17/25 08:13 Height 5 ft 7 in Weight 173 lb BMI 27.1 BP 124/74 Blood Pressure Location Lt brachial Position Sitting Pulse 86 Oxygen Delivery Method Room Air Intake Visit Reasons: 6 wk f/u Intake Note: Patient 6 weeks follow up for Multiple hemangiomas,lab and MRI results. Patient cc: chronic abdominal pain and today he felt a sharp pain on his back x 2 hrs. Denies any other GI issues. Rock Dust Sprayer Required: Yes Rock Dust Sprayer Name: [facility] Interpeter Accompanied by: Self / Same As Patient Allergies No Known Allergies Allergy (Verified 02/17/25 08:10) Medication List - Last Reconciled 02/17/25 by Nathalia Juárez CNP famotidine 20 mg PO DAILY simethicone (Gas Relief (simethicone)) 80 mg PO BID-QID PRN HPI HPI 6 wk f/u: Details: Patient is a 39-year-old male with PMH of hepatic hemangiomas. The patient reports ongoing intermittent abdominal pain, described as non-daily, moving between the lower right and left abdomen, occasionally radiating to the back. Pain continues to occur after eating particularly with mayonnaise and fried foods. Shares he will then have the urge to defecate and will produced a normal BM. States episodes last approximately one hour and resolve spontaneously without intervention. . Stools remain regular, with 1-2 daily bowel movements (normal consistency, no straining, no blood). Heartburn occurs about once weekly and resolves independently. The patient denies weight loss efforts but noted an unintentional 11-pound decrease recently. H. pylori treatment has been completed, Compliance with previous therapy is confirmed. 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 Reports generalized joint pain that he attributes to his job duties, denies systemic symptoms. No hospitalizations or significant interim events reported. The patient denies nausea, vomiting, fecal incontinence or changes in bowel habits. [facility] Medical History (Updated 02/17/25 @ 09:51 by Nathalia Juárez CNP) Helicobacter pylori (H. pylori) Back pain Unintentional weight loss Multiple hemangiomas Positive H. pylori test Mild acid reflux Liver lesion History of fracture of clavicle No known health problems Surgical History Hx of appendectomy Family History Mother Diabetes Thyroid disease Father Colon polyps Son No problems noted. 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 Cognitive needs: No Hearing needs: No Vision needs: No Physical Exam Vital Signs: Last Vital Signs Pulse 86 02/17/25 08:13 BP 124/74 02/17/25 08:13 Oxygen Delivery Method Room Air 02/17/25 08:13 BMI result Body Mass Index 27.1 Const General: healthy appearing, no acute distress and well developed Nutritional Appearance: average body habitus Orientation/consciousness: patient oriented x3 HEENT Head: Yes normal to inspection, Yes normocephalic and Yes atraumatic Face and sinus: Yes normal facial exam Eyes General: appearance normal, both eyes and all related structures Neck Neck: Yes normal visual inspection Resp Effort & Inspection: normal respiratory effort, able to speak in complete sentences, no tracheal deviation and symmetric chest movement Auscultation: clear to auscultation bilaterally Cardio Jugular venous distension: no JVD Rate: regular rate Rhythm: regular rhythm Heart sounds: S1 normal heart sound present, S2 normal heart sound present, no gallops and no murmurs GI Inspection: Yes normal to inspection and No distended Palpation (GI): Soft to palpation, not firm, nontender and No hepatosplenomegaly present Auscultation: normal bowel sounds Back/Spine/Pelvis Back: back tenderness (right mid latissimus dorsi region) Neuro General: patient oriented x3 Gait exam (Neuro): Normal gait present Psych Appearance: grossly normal Mental Status: mental status grossly normal Speech and movement: Normal speech and movement present Affect: normal affect Attitude: cooperative Thought process: Normal thought process present Thought content: Normal thought content present Insight: Good insight present (Psych) Judgement: Good judgement present (Psych) Assessment & Plan Assessment & Plan (1) Abdominal pain: Code(s): R10.9 - Unspecified abdominal pain Category: Medical Qualifiers: Abdominal location: epigastric Qualified Code(s): R10.13 - Epigastric pain Plan: Persistent symptoms; stable without escalation. Revisited CT and US completed 10/2024 by outside facility, no abnormal Hepatopancreatobiliary findings ( see scanned documents). Pending evaluation of imaging and stool inflammation tests. Additional Testing: -Ab XR to evaluate for stool burden -fecal calprotectin pending. However, anticipate normal results given reports of regular bowel movements. -Serum labs (HbA1c, thyroid panel, LFTs, hepatitis panel, HIV, anemia panel). -X-ray ( chest, thoracic, sacroiliac): To rule out extra-abdominal causes for weight loss/pain. Medications: Pepcid (famotidine) recommended daily until the next evaluation. Lifestyle Recommendations: -Monitor symptom triggers and patterns, specifically bowel habits and meal- related exacerbations. -Maintain normal hydration and balanced fiber intake. Referrals / Coordination of Care: If no resolution after imaging and labs, defer continue workout to PCP. (2) Unintentional weight loss: Code(s): R63.4 - Abnormal weight loss Category: Medical Plan: Recent onset at 10-lb weight loss over unclear duration. Pending labs to explore metabolic or systemic causes. Additional Testing: Expanded GI workup as above (3) Back pain: Code(s): M54.9 - Dorsalgia, unspecified Category: Medical Qualifiers: Back pain laterality: right Back pain location: thoracic back pain Chronicity: acute Qualified Code(s): M54.6 - Pain in thoracic spine Plan: Intermittent; mild tenderness on examination. Pain reproduction on palpation s uggests strain. Lifestyle Recommendations: Avoid heavy lifting or adopt ergonomic practices during construction work. Stretch and apply heat/ice as needed for relief. (4) Helicobacter pylori (H. pylori): Code(s): A04.8 - Other specified bacterial intestinal infections Category: Medical Plan: Resolved based on recent stool testing. No further treatment required Plan Follow-up 3 months or sooner as needed Time: I spent a total of 40 minutes on the date of encounter which includes: Preparing to see the patient (reviewed previous documentation, test results and medical history) Performing a medically appropriate exam and/or evaluation Ordering medications, tests, and procedures Documenting clinical information in the health record Orders: Orders XR thoracic spine 2V Today M54.9 - Dorsalgia, unspecified XR sacroiliac joint 1-2V Today M25.50 - Pain in unspecified joint, R10.13 - Epigastric pain, R10.9 - Unspecified abdominal pain Hemoglobin A1c Today R63.4 - Abnormal weight loss HIV Ab/Ag Today R63.4 - Abnormal weight loss Hepatitis A,B,C Profile Today R63.4 - Abnormal weight loss Hepatitis A IgG Today R63.4 - Abnormal weight loss XR chest 2V Today R63.4 - Abnormal weight loss Medications: New famotidine Take one tablet daily at bedtime 20 mg PO DAILY 90 tabs 1RF GERD Coding Level of Care Code Established Pt Est Pt Level 5 (02097) Patient Type Established Diagnoses Epigastric pain R10.13 Abdominal location: epigastric Unintentional weight loss R63.4 Acute right-sided thoracic back pain M54.6 Back pain laterality: right Back pain location: thoracic back pain Chronicity: acute Helicobacter pylori (H. pylori) A04.8
[2025-02-17 08:13] VITALS: BP 124/74; PULSE 86; BMI 27.1
== END 2025-02-17 08:46 | disposition home or self-care (01) ==
LOC: HO.HGI 07:59
PROVIDERS: Visit Provider Nurse Practitioner Family
DX: R10.13 Epigastric pain (principal); R63.4 Abnormal weight loss; M54.6 Pain in thoracic spine; A04.8 Other specified bacterial intestinal infections
CPT/HCPCS: 99215

== ENCOUNTER → 2025-02-17 09:13 | Outpatient (BNV) | payer OTHER, SELFPAY | PROVIDERS: Visit Provider Radiology Diagnostic Radiology | DX: R16.0 Hepatomegaly, not elsewhere classified (principal); R63.4 Abnormal weight loss; M47.814 Spondylosis without myelopathy or radiculopathy, thoracic region; R10.30 Lower abdominal pain, unspecified | CPT/HCPCS: 71046; 72070; 72200; 74019 ==

== ENCOUNTER 2025-04-14 08:27 | Outpatient (AMB) | payer OTHER, SELFPAY ==
--- NOTE | 2025-04-14 08:35 | A.OFFPC_ITS ---
Vital Signs 04/14/25 08:38 Height 5 ft 7 in Weight 181 lb BMI 28.3 BP 130/60 Blood Pressure Location Lt brachial Position Sitting Pulse 72 Pulse Source Pulse Oximeter Temp 96.9 F Temp Source Temporal Artery Scan Pulse Oximetry (%) 96 Oxygen Delivery Method Room Air Intake Visit Reasons: hld/abdominal pain Intake Note: Patient is here to follow up on HLD, Abdominal pain. Test Engine Evaluator Required: No Watershed Manager: Not Required per policy Accompanied by: Self / Same As Patient Allergies No Known Allergies Allergy (Verified 04/14/25 08:47) Medication List - Last Reconciled 04/14/25 by JOI Delarosa famotidine 20 mg PO DAILY simethicone (Gas Relief (simethicone)) 80 mg PO BID-QID PRN Tobacco use date assessed: 04/14/25 Dental Screening Dental Screen Date: 12/14/24 HPI hld/abdominal pain HPI Details The patient is a 40 old male presenting for follow up appointment on HLD and abdominal pain Patient reports that he was unable to get his blood work done but will go right after this appointment to complete it Reports that his abdominal pain is fluctuating, sometimes it is in the epigastric region, sometimes on the right side, sometimes on the left. Reports sometimes with foods sometimes without food. The patient is currently being managed on famotidine 20 mg daily and simethicone 80 mg p.r.n. The patient reports that he has been taking the famotidine as needed, reports that if he eats something and he gets severe stomach pain then he will take the medication. Reports that GI have completed multiple tests so far without any evidence of what is causing his stomach pain. The patient states that his father had to have surgery due to diverticulitis and told all his kids to make sure that they get a colonoscopy done. Reports that he told GI that he wants this done, but they have not decided on doing this as yet. Ongoing chronic back pain, tolerable, he is more worried about his stomach. [facility] Medical History Helicobacter pylori (H. pylori) Back pain Unintentional weight loss Multiple hemangiomas Positive H. pylori test Mild acid reflux Liver lesion History of fracture of clavicle No known health problems Surgical History Hx of appendectomy Family History Mother Diabetes Thyroid disease Father Colon polyps Son No problems noted. 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 Cognitive needs: No Hearing needs: No Vision needs: No Questionnaire Thrive Questionnaire Date Thrive assessed: 10/19/24 I am a: Patient What is your living situation today?: I have a steady place to live Within the past 12 months, did the food you bought not last and you didn't have the money to get more?: Never true Within the past 12 months, did you worry whether your food would run out before you got money to buy more?: Never true Do you have trouble paying for medicines?: No Do you have trouble getting transportation to medical appointments?: No Do you have trouble paying your heating and electricity bill?: No Do you have trouble taking care of your child, family member or friend?: No Do you have trouble with day-to-day activities such as bathing, preparing meals, shopping, managing finances, etc.?: No Are you currently unemployed and looking for a job?: No Are you interested in more education?: No Please select the resources that you would like help with: None Currently or been in a relationship where the following occur: I choose not to answer THRIVE Score: 0 MANJIT-7 AMB Questionnaire MANJIT-7 Date MANJIT - 7 assessed: 12/14/24 Source: Developed by Drs. Simone Leyva, Marianna Rodríguez, Matteo Arredondo and colleagues, with an educational jac from [email or web address]. Review of Systems Const Denies body aches, Denies chills, Denies fever(s), Denies headache(s) and Denies poor appetite Eyes Reports no additional complaints ENT Denies dysphagia, Denies dizziness, Denies headache(s) and Denies odynophagia Card Denies chest pain, Denies syncope, Denies edema, Denies irregular heart rhythm, Denies lightheadedness and Denies dyspnea Resp Denies cough and Denies dyspnea GI Reports abdominal pain, Reports bloating, Denies constipation, Denies dysphagia, Reports heartburn, Denies diarrhea, Denies nausea, Denies odynophagia and Denies vomiting Reports no additional complaints Musc Reports back pain Skin/Breast Reports system reviewed and no additional complaints, except as documented Neuro Denies dizziness, Denies syncope and Denies headache(s) Psych Reports no additional complaints Physical exam (Primary Care) Vital Signs: Oxygen Delivery Method Room Air 04/14/25 08:38 Tobacco/Smoking Status: Tobacco use Status Tobacco use date assessed 12/14/24 02/17/25 08:47 Patient Tobacco Use Status Never used Tobacco 02/17/25 08:47 e-Cigarette/Vaping Use Never Used 02/17/25 08:47 Thrive Assessment: Date of Thrive Assessment Date Thrive assessed 10/19/24 02/17/25 08:47 Currently or been in a relationship where the following occur: I choose not to answer Const General: cooperative, healthy appearing, comfortable and no acute distress Orientation/consciousness: patient oriented x3 HENMT Head: Yes normocephalic Ears: hearing grossly normal bilaterally General nose exam: Normal external nose present Eyes General: appearance normal, both eyes and all related structures Conjunctivae: conjunctivae normal Neck Neck: Yes full ROM and Yes no lymphadenopathy Resp Effort & Inspection: normal respiratory effort Auscultation: clear to auscultation bilaterally, no crackles, no rales, no rhonchi and no wheezes Cardio Rate: regular rate Rhythm: regular rhythm Heart sounds: S1 normal heart sound present and S2 normal heart sound present GI Palpation (GI): Soft to palpation, nontender and No hepatosplenomegaly present General: Yes no CVA tenderness Back/Spine/Pelvis Back: no CVA tenderness Thoracic/Lumbar Spine: No thoracic spinal tenderness and No lumbar spinal tenderness Skin General skin exam: no rashes or lesions noted Neuro General: patient oriented x3 Gait exam (Neuro): Normal gait present Extrem General: Yes normal to inspection, Yes full ROM and No edema Psych Affect: normal affect Attitude: cooperative Insight: Good insight present (Psych) Judgement: Good judgement present (Psych) Coding Level of Care Code Est Pt Level 3 (84137) Diagnoses Pure hypercholesterolemia E78.00 Epigastric pain R10.13 Abdominal location: epigastric Acute right-sided thoracic back pain M54.6 Back pain location: thoracic back pain Chronicity: acute Back pain laterality: right Time Spent (min) 31 Assessment & Plan Assessment & Plan (1) Pure hypercholesterolemia: Code(s): E78.00 - Pure hypercholesterolemia, unspecified Category: Medical Plan: ldl 132 on 09/2023, he has not completed the follow up blood work and is going to get this done after appointment Discussed lifestyle modifications including dietary changes and physical activity We will continue to monitor (2) Abdominal pain: Code(s): R10.9 - Unspecified abdominal pain Category: Medical Qualifiers: Abdominal location: epigastric Qualified Code(s): R10.13 - Epigastric pain Plan: Abdominal pain ongoing, he has been worked up by GI, he had a CT scan and a MRI so far. He was also found to have positive H pylori and was treated successfully. The patient is currently being managed with famotidine 20 mg daily and simethicone 80 mg b.i.d. to q.i.d. p.r.n.. However, the patient apparently is taking the famotidine after he is already having heartburn. Encouraged the patient to take this medication daily at bedtime to help prevent the heartburn. Reinforced dietary restrictions. Follow up with GI as scheduled (3) Back pain: Code(s): M54.9 - Dorsalgia, unspecified Category: Medical Qualifiers: Back pain location: thoracic back pain Chronicity: acute Back pain laterality: right Qualified Code(s): M54.6 - Pain in thoracic spine Plan: The patient complain of ongoing back pain. So far the patient had a thoracic x- ray that showed: Mild scoliosis and mild to moderate multilevel spondylosis. Encouraged the patient to continue conservative measures, like proper body mechanics, frequent stretches, OTC pain medications. She also use heat/cold compress alternatively on for 20 minutes at a time.
[2025-04-14 08:38] VITALS: BP 130/60; PULSE 72; TEMP 36.1; O2SAT 96; BMI 28.3
--- OUTSIDE RECORDS SUMMARY | 2025-04-14 08:47 | XMS_ITS | Clinical Summary ---
Author Organization [employer] Address [address] [facility] [address] [place] [address] Care Team Providers Care Shop Tailor Apprentice Name Role Phone Unavailable Primary Care Provider [...] COVID-19 Vaccine (1 - 2023-2 5 season) 2025 Influenza Vaccine (#1) 2025 Zoster Vaccines (1 [...] patient's age to complete this topic Insurance [facility] , [address] [place] [address]
--- OUTSIDE RECORDS SUMMARY | 2025-04-14 08:47 | XMS_ITS | Clinical Summary ---
Author Organization [facility] Address [address] [place] [address] Phone Care Team Providers Care Marine Service Manager Name Role Phone Nabeel Pérez Alexa LIZAMA Primary Care Provider [phone] Allergies No known active allergies Medications No [...] of 3 - 19+ 3-dose series) 2004 HPV Vaccines (1 - 3-dose SCD M series) 2012 Cholesterol Screening (Lipid Panel) 05/29/2022 HIV Screening 05/29/2022 Hepatitis C Screening 05/29/2022 Social Influencers of Health Screening 05/29/2022 Depression Screening 06/30/2024 COVID-19 Vaccine (1 - 2023-2 5 season) 2025 Influenza Vaccine (#1) 2025 RSV Immunization Adult Patie nts (1 - 1-dose 75+ series) 2060 HIB [...] patient[id number] [facility] Care Teams Marine Service Manager Relationship Specialty Start Date End Date Nabeel Pérez FNP PCP - General Family Medicine 10/30/24
--- OUTSIDE RECORDS SUMMARY | 2025-04-14 08:47 | XMS_ITS | Encounter Summary ---
Author Organization [employer] Address [address] [facility] [address] [place] [address] Care Team Providers Care Strategic Consultant Name Role Phone Unavailable Primary Care Provider Unavailabl e Reason for Visit * Reason Onset Date Comments New Patient Appt 11/22/2022 Encounter Details Date Type Department Care Team ([facility] st Contact Info) Description 11/22/2022 Telephone [facility] [address] [place], [place] [phone] Festus Sherman MD [address] [place], [place] [phone] New Patient Appt Social History Tobacco Use [...] left voicemail to give a call at [phone]. documented in this encounter Plan of Treatment Not on file documented as of this encounter Visit Diagnoses Not on filedocumented in this encounter
== END 2025-04-14 09:05 | disposition home or self-care (01) ==
LOC: HO.HMCH 08:28
DX: E78.00 Pure hypercholesterolemia, unspecified (principal); R10.13 Epigastric pain; M54.6 Pain in thoracic spine

== ENCOUNTER 2025-04-14 08:27 | Outpatient (REF) | payer OTHER, SELFPAY ==
[2025-04-14 11:20] LABS: Alanine Aminotransferase 26 U/L (0-40); Albumin Level 4.6 g/dL (3.5-5.0); Alkaline Phosphatase 72 U/L (39-117); Anion Gap 9 (12-20); Aspartate Amino Transferase 20 U/L (5-37); Blood Urea Nitrogen 10 mg/dL (9-16); Calcium 8.9 mg/dL (8.4-10.2); Carbon Dioxide 28 mmol/L (22-29); Chloride 105 mmol/L (96-108); Cholesterol 210 mg/dL (<200); Estimated Glomerular Filt Rate > 60; HDL Cholesterol 40 mg/dL (>40); Potassium 4.3 mmol/L (3.3-5.1); Sodium 138 mmol/L (135-145); Total Protein 7.3 g/dL (6.5-8.0); Triglycerides 117 mg/dL (<150)
== END 2025-04-14 08:28 | disposition home or self-care (01) ==
LOC: HO.LAB 08:27
DX: R10.13 Epigastric pain (principal); E78.00 Pure hypercholesterolemia, unspecified; K76.9 Liver disease, unspecified; M54.6 Pain in thoracic spine
CPT/HCPCS: 36415; 80053; 80061

== ENCOUNTER 2025-05-12 09:15 | Outpatient (AMB) | payer OTHER, SELFPAY ==
--- NOTE | 2025-05-12 09:27 | MHC.OFFVIS ---
Vital Signs 05/12/25 09:28 Height 5 ft 7 in Weight 181 lb BMI 28.3 BP 111/70 Blood Pressure Location Lt brachial Position Sitting Pulse 84 Intake Visit Reasons: 3m Intake Note: Patient follow up for abdominal pain, lab and x-ray results Patient cc: abdominal pain on and off with bloating, acid reflux, and denies any other GI issues. Phlebotomy Program Coordinator Required: Yes Phlebotomy Program Coordinator Name: [facility] Accompanied by: Self / Same As Patient Allergies No Known Allergies Allergy (Verified 05/12/25 09:26) HPI HPI 3m: Details: Patient is a 39-year-old male with PMH of hepatic hemangiomas. F/u for persistent upper abdominal pain, primarily in epigastric region. Pt continues to report recurrent epigastric pain, often with burning character, occurring variably with or without food intake. No associated dysphagia, regurgitation, or hematochezia. Pt previously completed H. pylori eradication therapy with confirmed eradication and denies noticeable improvement in abd pain post-therapy. Continues Pepcid (famotidine) intermittently?self-adjusting administration time between morning and evening without clear benefit. Stools remain regular, ~q.d., no reported incomplete evacuation, no gross blood or melena. New family hx revealed: father and other 1st-degree relatives with multiple colonic polyps (pathology unknown), prompting earlier colorectal screening. No new GI or constitutional sx. No reported interim hospitalizations, urgent care visits, or acute flares. [facility] Medical History (Updated 05/12/25 @ 10:03 by Nathalia Juárez CNP) Colon cancer screening Family history of colonic polyps Helicobacter pylori (H. pylori) Back pain Unintentional weight loss Multiple hemangiomas Positive H. pylori test Mild acid reflux Liver lesion History of fracture of clavicle No known health problems Surgical History Hx of appendectomy Family History Mother Diabetes Thyroid disease Father Colon polyps Son No problems noted. 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 Cognitive needs: No Hearing needs: No Vision needs: No Review of Systems Const Reports as per [facility] ENT Reports as per [facility] Card Reports as per [facility] Resp Reports as per HPI GI Reports as per [facility] Reports as per [facility] Physical Exam Vital Signs: BMI result Body Mass Index 28.3 Const General: healthy appearing, no acute distress and well developed Nutritional Appearance: average body habitus Orientation/consciousness: patient oriented x3 HEENT Head: Yes normal to inspection, Yes normocephalic and Yes atraumatic Face and sinus: Yes normal facial exam Eyes General: appearance normal, both eyes and all related structures Neck Neck: Yes normal visual inspection Resp Effort & Inspection: normal respiratory effort, able to speak in complete sentences, no tracheal deviation and symmetric chest movement Cardio Jugular venous distension: no JVD Neuro General: patient oriented x3 Gait exam (Neuro): Normal gait present Psych Appearance: grossly normal Mental Status: mental status grossly normal Speech and movement: Normal speech and movement present Affect: normal affect Attitude: cooperative Thought process: Normal thought process present Thought content: Normal thought content present Insight: Good insight present (Psych) Judgement: Good judgement present (Psych) Assessment & Plan Assessment & Plan (1) Mild acid reflux: Code(s): K21.9 - Gastro-esophageal reflux disease without esophagitis Category: Medical Plan: Persistent symptoms, unchanged since prior visit; burning quality; not meal-dependent. Incomplete response to H2RA; new empirical PPI trial and more definitive structural r/o indicated; non-invasive workup to date has not yielded a dx. Additional Testing: - Upper GI series: r/o hiatal hernia, structural lesions?ordered urgent. - Upper endoscopy (EGD): direct mucosal visualization; essential given ongoing sx and FHx?ordered. Medications: - Omeprazole 20 mg PO qAM; best taken on empty stomach. - Pepcid to continue PRN for breakthrough. - Monitor for side effects: GI upset, headache, rare hypomagnesemia/osteopenia. Lifestyle Recommendations: - Continue to avoid trigger foods if identified; maintain hydration; avoid NSAIDs. Referrals / Coordination of Care: - Endoscopy scheduling for EGD; radiology for UGI study. Follow-Up Plan: - F/u after completion of endoscopic and imaging studies or sooner prn for sx worsening. (2) Family history of colonic polyps: Code(s): Z83.71 - Family history of colonic polyps Category: Medical Plan: Now meets high-risk criteria due to polyps in 1st-degree relatives. Additional Testing: - Colonoscopy: scheduled as priority. - Prep: Miralax + 4 bisacodyl tabs in 64 oz Gatorade, as reviewed. Medications: - None specific outside bowel prep. Lifestyle Recommendations: - Bowel prep as above; clear liquids per protocol day prior. - Avoid red/purple/blue liquids pre-procedure. Referrals / Coordination of Care: - Direct scheduling w/ endo suite; prep video provided. Follow-Up Plan: - Post-procedure f/u to review findings; sooner prn for questions. (3) Colon cancer screening: Code(s): Z12.11 - Encounter for screening for malignant neoplasm of colon Category: Medical Plan Follow-up after endoscopy or sooner as needed Time: I spent a total of 30 minutes on the date of encounter which includes: Preparing to see the patient (reviewed previous documentation, test results and medical history) Performing a medically appropriate exam and/or evaluation Ordering medications, tests, and procedures Documenting clinical information in the health record Orders: Orders FL upper GI small bowel Today K21.9 - Gastro-esophageal reflux disease without esophagitis, R10.13 - Epigastric pain Referrals GI Procedure Notification K21.9 - Gastro-esophageal reflux disease without esophagitis, R10.13 - Epigastric pain, Z12.11 - Encounter for screening for malignant neoplasm of colon, Z83.71 - Family history of colonic polyps Medications: New polyethylene glycol 3350 (Miralax) per colonoscopy prep instructions 238 grams PO ONCE 238 grams 0RF omeprazole Take one tablet daily. Best taken on an empty, 30 minutes before eating. 20 mg PO DAILY 90 caps 1RF bisacodyl take four tablets once day of colonoscopy prep 20 mg (4 x 5 mg) PO ONCE 4 tabs 0RF Coding Level of Care Code Established Pt Est Pt Level 3 (92014) Patient Type Established Diagnoses Mild acid reflux K21.9 Family history of colonic polyps Z83.71 Colon cancer screening Z12.11
[2025-05-12 09:28] VITALS: BP 111/70; PULSE 84; BMI 28.3
--- OUTSIDE RECORDS SUMMARY | 2025-05-12 10:31 | XMS_ITS | Clinical Summary ---
Author Organization [facility] Address [address] [place] [address] Phone Care Team Providers Care Wrapper Sizer Name Role Phone Nabeel Pérez Alexa LIZAMA [...] Depression Screening 06/30/2024 COVID-19 Vaccine (1 - 2024-2 6 season) 2025 Influenza Vaccine (#1) 2025 RSV [...] patient[place] [id number] [facility] Care Teams Wrapper Sizer Relationship Specialty Start Date End Date Nabeel Pérez FNP PCP - General Family Medicine 10/30/24
--- OUTSIDE RECORDS SUMMARY | 2025-05-12 10:31 | XMS_ITS | Clinical Summary ---
Author Organization [employer] Address [address] [facility] [address] [place] [address] Care Team Providers Care Stranding Supervisor Name Role Phone Unavailable Primary Care Provider [...] Planning (PISQ) 2000 HPV Vaccines (1 - Male 3-dos e series) 2000 Hepatitis C Screening 2003 DTaP/Tdap/Td Vaccines (1 - Tdap) 2004 Hepatitis B Vaccines (1 of 3 - 19+ 3-dose series) 2004 Tobacco Screening 08/14/2023 08/14/2022 COVID-19 Vaccine (1 - 2024-2 6 season) 2025 Influenza Vaccine (#1) 2025 Zoster [...] patient's age to complete this topic Insurance [facility] , [address] [place] [address]
--- OUTSIDE RECORDS SUMMARY | 2025-05-12 10:31 | XMS_ITS | Encounter Summary ---
Author Organization [employer] Address [address] [facility] [address] [place] [address] Care Team Providers Care Business Law Instructor Name Role Phone Unavailable Primary Care Provider Unavailabl e Reason for Visit * Reason Onset Date Comments New Patient Appt 11/22/2022 Encounter Details Date Type Department Care Team ([facility] st Contact Info) Description 11/22/2022 Telephone [facility] [address] [place], [place] [phone] Festus Sherman MD [address] [place], [place] [phone] New Patient Appt Social History Tobacco Use [...] left voicemail to give a call at [phone]. documented in this encounter Plan of Treatment Not on file documented as of this encounter Visit Diagnoses Not on filedocumented in this encounter
== END 2025-05-12 09:57 | disposition home or self-care (01) ==
LOC: HO.HGI 09:16
PROVIDERS: Visit Provider Nurse Practitioner Family
DX: Z01.818 Encounter for other preprocedural examination (principal); Z12.11 Encounter for screening for malignant neoplasm of colon; Z83.719 Family history of colon polyps, unspecified; K21.9 Gastro-esophageal reflux disease without esophagitis
CPT/HCPCS: 99213